=== PATIENT | male | born 1960 | race African-American/Black ===

== ENCOUNTER 2020-05-08 14:14 | Inpatient (IN) | payer MEDICAID, OTHER ==
[~2020-05-08] VITALS: Ht 188 cm; Wt 79.0 kg
[2020-05-08 14:28] VITALS: BP 77/94
[2020-05-08] MEDS ORDERED: MIDAZOLAM HCL 5 MG/ML-1ML VIAL IV ONE (14:30)
[2020-05-08] MEDS: MIDAZOLAM DRIP 50 mg/50mL 50 ML IV SCH (14:34)
[2020-05-08] MEDS ORDERED: NOREPINEPHRINE 8 MG/250ML KIT 250 ML IV ONE (15:01)
[2020-05-08] MEDS: NOREPINEPHRINE 8 MG/250ML KIT 250 ML IV SCH (15:05)
[2020-05-08 15:10] LABS: Hemoglobin 12.7 g/dL (13.5-17.5); White Blood Cell 6.3 10^3/uL (4.4-10.8)
[2020-05-08 15:12] LABS: Hematocrit 37.4 % (41.0-53.0); Mean Corpuscular Hemoglobin 35.3 pg (28.0-32.0); Platelet Count (auto) 137 10^3/uL (140-450); Red Cell Distribution Width 13.1 % (11.8-14.3)
[2020-05-08 15:21] LABS: Basophils % (manual) 0 (0.0-2.0); Blast Cells 0; Metamyelocytes % 0; Myelocytes % 0; Promyelocytes % 0; Reactive Lymphocytes 0
[2020-05-08 15:23] LABS: INR 0.97 (0.9-1.15); Partial Thromboplastin Time 20.6 sec (23.0-31.2)
[2020-05-08 15:26] LABS: Albumin 3.2 g/dL (3.4-5.0); Calcium 7.4 mg/dL (8.5-10.1)
[2020-05-08 15:28] LABS: Urine Bacteria FEW /hpf (None Seen); Urine Blood 2+ /uL (Negative); Urine Hyaline Cast FEW /lpf (0 - 2); Urine Specific Gravity 1.011 (1.001-1.035); Urine WBC 3 /hpf (0 - 3)
[2020-05-08 15:32] LABS: BUN/Creatinine Ratio 13.4; Bilirubin, Total 0.4 mg/dL (0.2-1.0); Total Protein 6.8 g/dL (6.4-8.2)
[2020-05-08 15:40] LABS: Lactic Acid w/Reflex 5.9 mmol/L (0.4-2.0)
[2020-05-08 15:41] LABS: Potassium 2.9 mmol/L (3.5-5.1)
[2020-05-08 15:43] LABS: Amphetamine Screen, Urine NEGATIVE (NEGATIVE); Barbiturate Scree,Urine NEGATIVE (NEGATIVE); Benzodiazephine Screen, Urine NEGATIVE (NEGATIVE); Cannabinoid Screen, Urine POSITIVE (NEGATIVE); Cocaine Screen, Urine NEGATIVE (NEGATIVE); Phencyclidine Screen, Urine NEGATIVE (NEGATIVE)
[2020-05-08 15:50] LABS: Opiate Scree,Urine NEGATIVE (NEGATIVE)
[2020-05-08 15:53] VITALS: BP 77/94
[2020-05-08] MEDS ORDERED: SODIUM CHLORIDE 0.9% 3,000 ML IV ONE (16:00)
[2020-05-08 16:15] VITALS: BP 110/78
[2020-05-08 16:25] LABS: Band Neutrophils % (manual) 1; Eosinophils % (manual) 1 (0-7); Lymphocytes % (manual) 60 (10.0-50.0); Monocytes % (manual) 12 (0-12)
[2020-05-08] MEDS ORDERED: VANCOMYCIN 1GM/250ML 250 ML IV ONE (18:00)
[2020-05-08 18:13] VITALS: BP 119/80
[2020-05-08 18:13] LABS: Salicylate 1.7 mg/dL (2.8-20.0)
[2020-05-08 18:15] LABS: Acetaminophen < 2.0 ug/mL (10-30)
[2020-05-08] MEDS ORDERED: dilTIAZem 25 MG/5 ML VIAL IV ONE (18:30)
[2020-05-08] MEDS: SODIUM CHLORIDE 0.9% 1,000 ML IV SCH (18:40)
[2020-05-08 20:38] VITALS: BP 87/69
[2020-05-08 22:10] VITALS: BP 131/84
[2020-05-08] MEDS ORDERED: MORPHINE SULF INJ 2 MG/ML SYRINGE 1ML IV PRN (22:45)
[2020-05-08] MEDS ORDERED: ONDANSETRON HCL 4 MG/2 ML VIAL IV PRN (22:45)
[2020-05-08] MEDS ORDERED: ACETAMINOPHEN 650 MG RECT SUPP PR PRN (22:45)
[2020-05-08] MEDS ORDERED: DEXTROSE (50%) 50ML SYRG IV PRN (22:45)
[2020-05-08] MEDS ORDERED: VANCOMYCIN PER PHARMACY 0 MG IV SCH (22:45)
[2020-05-08] MEDS ORDERED: NITROGLYCERIN 0.4 MG SL TAB SL PRN (22:45)
[2020-05-08] MEDS ORDERED: PROPOFOL 100 ML IV ONE (23:02)
[2020-05-09] VITALS (104 sets, daily range): BP systolic 94–159; BP diastolic 62–110
[2020-05-09] MEDS: SODIUM CHLORIDE 0.9% 1,000 ML IV SCH ×3 (01:10→07:52)
[2020-05-09] MEDS: PROPOFOL 100 ML IV SCH ×3 (01:49→21:17)
[2020-05-09] MEDS: MIDAZOLAM DRIP 50 mg/50mL 50 ML IV SCH ×3 (01:50→21:19)
[2020-05-09 03:58] LABS: Basophils # (auto) 0 10 ^3/uL (0-0.2); Eosinophils # (auto) 0 10 ^3/uL (0-0.8); Hemoglobin 12.1 g/dL (13.5-17.5); Monocytes # (auto) 0.5 10 ^3/uL (0-1.3)
[2020-05-09 04:04] LABS: Basophils % (auto) 0.4 % (0.0-2.0); Eosinophils % (auto) 0.7 % (0.0-7.0); Hematocrit 35.3 % (41.0-53.0); Lymphocytes # (auto) 1.7 10 ^3/uL (0.4-5.4); Lymphocytes % (auto) 29.7 % (10.0-50.0); Mean Corpuscular Hemoglobin 35.1 pg (28.0-32.0); Mean Corpuscular Hgb Conc. 34.3 g/dL (32.0-36.0); Mean Corpuscular Volume 102.5 fL (80.0-100.0); Monocytes % (auto) 9.2 % (0.0-12.0); Neutrophils # (auto) 3.5 10 ^3/uL (1.6-8.6); Nucleated Red Blood Cells % 0.3 %; Platelet Count (auto) 132 10^3/uL (140-450); Red Blood Cells 3.45 10^6/uL (4.5-5.90); Red Cell Distribution Width 13.5 % (11.8-14.3); White Blood Cell 5.8 10^3/uL (4.4-10.8)
[2020-05-09 04:27] LABS: Albumin 2.9 g/dL (3.4-5.0); BUN/Creatinine Ratio 11.5; Potassium 3.8 mmol/L (3.5-5.1)
[2020-05-09 04:30] LABS: Bilirubin, Total 0.4 mg/dL (0.2-1.0); Total Protein 5.8 g/dL (6.4-8.2)
[2020-05-09] MEDS ORDERED: InsuLIN REG 1unit/0.01ml Soln (100units/ml) SC SCH (07:00)
[2020-05-09] MEDS ORDERED: ACCU-CHEK COMFORT CURVE STRIP VI SCH (07:00)
[2020-05-09] MEDS: VANCOMYCIN 1GM/250ML 250 ML IV SCH ×2 (09:52→20:20)
[2020-05-09] MEDS: PANTOPRAZOLE 40 MG/10 ML VIAL INJ IV SCH (09:52)
[2020-05-09] MEDS ORDERED: ENOXAPARIN SOD 80 MG/0.8ML SYRINGE SC SCH (10:00)
[2020-05-09] MEDS ORDERED: SODIUM CHLORIDE 0.9% 1,000 ML IV SCH (10:15)
[2020-05-09] MEDS: ALBUTEROL SULF 2.5 MG/0.5ML(0.5%) NEB SOLN NEB SCH ×2 (11:41→18:15)
[2020-05-09] MEDS: IPRATROPIUM BROM 0.5 MG/2.5ML INH SOL NEB SCH ×2 (11:41→18:14)
[2020-05-09] MEDS: fentaNYL Drip 2500mCg/250mlNS 250 ML IV SCH (12:00)
[2020-05-09] MEDS: levoFLOXacin 500MG 100 ML IV SCH (12:00)
[2020-05-09] MEDS: NOREPINEPHRINE 8 MG/250ML KIT 250 ML IV SCH (13:30)
[2020-05-09] MEDS: FOLIC ACID 1 MG, MULTIPLE VITAMIN 10 ML, MAGNESIUM SULF SDV 50% 8 MEQ, THIAMINE INJ 100... INJ SCH ×5 (14:00)
[2020-05-09] MEDS ORDERED: chlordiazePOXIDE HCL 25 MG CAP PO ONE (14:00)
[2020-05-09] MEDS: Jevity 1.2 Cal/Fiber 1 Liter GT SCH (14:43)
[2020-05-09] MEDS: chlordiazePOXIDE HCL 25 MG CAP PO SCH (17:20)
[2020-05-10] VITALS (103 sets, daily range): BP systolic 10–125; BP diastolic 53–84
[2020-05-10] MEDS: IPRATROPIUM BROM 0.5 MG/2.5ML INH SOL NEB SCH ×4 (00:16→18:23)
[2020-05-10] MEDS: ALBUTEROL SULF 2.5 MG/0.5ML(0.5%) NEB SOLN NEB SCH ×4 (00:16→18:23)
[2020-05-10] MEDS: PROPOFOL 100 ML IV SCH ×4 (00:51→21:41)
[2020-05-10] MEDS: fentaNYL Drip 2500mCg/250mlNS 250 ML IV SCH (00:52)
[2020-05-10 03:49] LABS: Basophils # (auto) 0.1 10 ^3/uL (0-0.2); Basophils % (auto) 0.5 % (0.0-2.0); Eosinophils # (auto) 0.1 10 ^3/uL (0-0.8); Eosinophils % (auto) 0.7 % (0.0-7.0); Hematocrit 38.2 % (41.0-53.0); Hemoglobin 12.9 g/dL (13.5-17.5); Lymphocytes # (auto) 1.1 10 ^3/uL (0.4-5.4); Mean Corpuscular Hemoglobin 34.8 pg (28.0-32.0); Mean Corpuscular Hgb Conc. 33.8 g/dL (32.0-36.0); Mean Corpuscular Volume 103.1 fL (80.0-100.0); Monocytes # (auto) 0.6 10 ^3/uL (0-1.3); Neutrophils # (auto) 10.3 10 ^3/uL (1.6-8.6); Neutrophils % (auto) 84.8 % (37.0-80.0); Platelet Count (auto) 137 10^3/uL (140-450); Red Cell Distribution Width 13.5 % (11.8-14.3); White Blood Cell 12.2 10^3/uL (4.4-10.8)
[2020-05-10] MEDS: MIDAZOLAM DRIP 50 mg/50mL 50 ML IV SCH (03:58)
[2020-05-10 04:09] LABS: Potassium 3.7 mmol/L (3.5-5.1)
[2020-05-10 04:16] LABS: Albumin 2.7 g/dL (3.4-5.0); BUN/Creatinine Ratio 6.9; Bilirubin, Total 0.3 mg/dL (0.2-1.0); Calcium 7.5 mg/dL (8.5-10.1); Total Protein 6.3 g/dL (6.4-8.2)
[2020-05-10] MEDS: VANCOMYCIN 1GM/250ML 250 ML IV SCH ×2 (05:30→16:50)
[2020-05-10] MEDS: chlordiazePOXIDE HCL 25 MG CAP PO SCH ×4 (06:00→18:16)
[2020-05-10] MEDS: PANTOPRAZOLE 40 MG/10 ML VIAL INJ IV SCH (09:42)
[2020-05-10] MEDS: levoFLOXacin 500MG 100 ML IV SCH (09:43)
[2020-05-10] MEDS ORDERED: ENOXAPARIN SOD 40 MG/0.4 ML SYRINGE SC SCH (10:00)
[2020-05-10] MEDS ORDERED: POTASSIUM EFFERVESENT TAB 25 MEQ GT ONE (11:30)
[2020-05-10] MEDS: FOLIC ACID 1 MG, MULTIPLE VITAMIN 10 ML, MAGNESIUM SULF SDV 50% 8 MEQ, THIAMINE INJ 100... INJ SCH ×5 (12:06)
[2020-05-10] MEDS: NOREPINEPHRINE 8 MG/250ML KIT 250 ML IV SCH (15:00)
[2020-05-10] MEDS ORDERED: IOHEXOL 350 MG/ML 100ML IJ ONE (15:33)
[2020-05-10] MEDS: ENOXAPARIN SOD 100 MG/1 ML SYRINGE SC SCH (21:39)
[2020-05-11] VITALS (107 sets, daily range): BP systolic 89–164; BP diastolic 47–96
[2020-05-11] MEDS: ALBUTEROL SULF 2.5 MG/0.5ML(0.5%) NEB SOLN NEB SCH ×2 (00:11→06:15)
[2020-05-11] MEDS: IPRATROPIUM BROM 0.5 MG/2.5ML INH SOL NEB SCH ×5 (00:11→22:02)
[2020-05-11] MEDS: PROPOFOL 100 ML IV SCH ×4 (02:06→16:17)
[2020-05-11] MEDS: VANCOMYCIN 1GM/250ML 250 ML IV SCH ×3 (02:06→21:01)
[2020-05-11] MEDS: fentaNYL Drip 2500mCg/250mlNS 250 ML IV SCH (02:53)
[2020-05-11 04:07] LABS: Eosinophils # (auto) 0.2 10 ^3/uL (0-0.8); Hemoglobin 12.1 g/dL (13.5-17.5); Mean Corpuscular Volume 102.3 fL (80.0-100.0); Nucleated Red Blood Cells % 0.1 %
[2020-05-11 04:10] LABS: Basophils # (auto) 0 10 ^3/uL (0-0.2); Basophils % (auto) 0.2 % (0.0-2.0); Eosinophils % (auto) 1.6 % (0.0-7.0); Hematocrit 36.2 % (41.0-53.0); Lymphocytes # (auto) 1.3 10 ^3/uL (0.4-5.4); Lymphocytes % (auto) 10.3 % (10.0-50.0); Mean Corpuscular Hemoglobin 34.2 pg (28.0-32.0); Mean Corpuscular Hgb Conc. 33.4 g/dL (32.0-36.0); Monocytes # (auto) 0.8 10 ^3/uL (0-1.3); Monocytes % (auto) 6.4 % (0.0-12.0); Neutrophils % (auto) 81.5 % (37.0-80.0); Platelet Count (auto) 136 10^3/uL (140-450); Red Blood Cells 3.54 10^6/uL (4.5-5.90); Red Cell Distribution Width 13.5 % (11.8-14.3); White Blood Cell 12.3 10^3/uL (4.4-10.8)
[2020-05-11 04:25] LABS: Albumin 2.3 g/dL (3.4-5.0); Calcium 7.5 mg/dL (8.5-10.1); Potassium 3.9 mmol/L (3.5-5.1)
[2020-05-11 04:29] LABS: BUN/Creatinine Ratio 7.1; Bilirubin, Total 0.2 mg/dL (0.2-1.0); Total Protein 6.1 g/dL (6.4-8.2)
[2020-05-11] MEDS: chlordiazePOXIDE HCL 25 MG CAP PO SCH ×4 (06:00→23:16)
[2020-05-11] MEDS ORDERED: LABETALOL HCL 5 MG/ML 4ML SYRINGE IV PRN (09:45)
[2020-05-11] MEDS ORDERED: LABETALOL HCL 5 MG/ML 4ML SYRINGE IV ONE (09:45)
[2020-05-11] MEDS: ENOXAPARIN SOD 100 MG/1 ML SYRINGE SC SCH ×2 (09:47→21:02)
[2020-05-11] MEDS: PANTOPRAZOLE 40 MG/10 ML VIAL INJ IV SCH (09:47)
[2020-05-11] MEDS: levoFLOXacin 500MG 100 ML IV SCH (09:47)
[2020-05-11] MEDS ORDERED: chlordiazePOXIDE HCL 25 MG CAP PO PRN (11:00)
[2020-05-11] MEDS: FOLIC ACID 1 MG, MULTIPLE VITAMIN 10 ML, MAGNESIUM SULF SDV 50% 8 MEQ, THIAMINE INJ 100... INJ SCH ×5 (12:47)
[2020-05-11] MEDS ORDERED: SODIUM CHLORIDE LOCK 30 ML ONE (13:12)
[2020-05-11] MEDS ORDERED: LIDOCAINE 2%HCL (LOCAL ANESTH.) INJ 20ML MDV ONE (13:12)
[2020-05-11] MEDS ORDERED: EPINEPHrine HCL 1 MG/1 ML AMP ONE (13:13)
[2020-05-11] MEDS ORDERED: LIDOCAINE HCL 2% TOP JELLY 5ML TOP ONE (13:13)
[2020-05-11] MEDS ORDERED: MIDAZOLAM HCL 5 MG/ML-1ML VIAL ONE (13:13)
[2020-05-11] MEDS ORDERED: fentaNYL CITRATE 100 MCG/2 ML VL ONE (13:13)
[2020-05-11] MEDS: MIDAZOLAM DRIP 50 mg/50mL 50 ML IV SCH (13:30)
[2020-05-11] MEDS: ACETYLCYSTEINE 10 %(100MG/ML) SOL 4ML NEB SCH ×3 (14:00→22:03)
[2020-05-11] MEDS: LEVALBUTEROL HCL 1.25 MG/3 ML NEB NEB SCH ×3 (14:47→22:03)
[2020-05-11] MEDS: NOREPINEPHRINE 8 MG/250ML KIT 250 ML IV SCH (15:00)
[2020-05-12] VITALS (58 sets, daily range): BP systolic 84–137; BP diastolic 45–86
[2020-05-12] MEDS: IPRATROPIUM BROM 0.5 MG/2.5ML INH SOL NEB SCH ×6 (02:16→22:16)
[2020-05-12] MEDS: ACETYLCYSTEINE 10 %(100MG/ML) SOL 4ML NEB SCH ×6 (02:16→22:16)
[2020-05-12] MEDS: LEVALBUTEROL HCL 1.25 MG/3 ML NEB NEB SCH ×6 (02:16→22:16)
[2020-05-12 04:19] LABS: Basophils # (auto) 0.1 10 ^3/uL (0-0.2); Basophils % (auto) 1.3 % (0.0-2.0); Eosinophils # (auto) 0.1 10 ^3/uL (0-0.8); Eosinophils % (auto) 1.6 % (0.0-7.0); Hematocrit 32.8 % (41.0-53.0); Hemoglobin 11.2 g/dL (13.5-17.5); Lymphocytes # (auto) 1.6 10 ^3/uL (0.4-5.4); Lymphocytes % (auto) 18.9 % (10.0-50.0); Mean Corpuscular Hgb Conc. 34.2 g/dL (32.0-36.0); Mean Corpuscular Volume 102.1 fL (80.0-100.0); Monocytes # (auto) 0.8 10 ^3/uL (0-1.3); Monocytes % (auto) 8.9 % (0.0-12.0); Neutrophils # (auto) 5.9 10 ^3/uL (1.6-8.6); Neutrophils % (auto) 69.3 % (37.0-80.0); Nucleated Red Blood Cells % 0.1 %; Platelet Count (auto) 134 10^3/uL (140-450); Red Blood Cells 3.22 10^6/uL (4.5-5.90); Red Cell Distribution Width 13.3 % (11.8-14.3); White Blood Cell 8.6 10^3/uL (4.4-10.8)
[2020-05-12 04:39] LABS: BUN/Creatinine Ratio 5.7; Calcium 7.9 mg/dL (8.5-10.1)
[2020-05-12] MEDS ORDERED: POTASSIUM CHLORIDE 20 MEQ in D5W 5% 1,000 ML IV SCH (05:15)
[2020-05-12] MEDS ORDERED: POTASSIUM CHL 20MEQ/100ML 100 ML IV ONE (05:30)
[2020-05-12] MEDS: chlordiazePOXIDE HCL 25 MG CAP PO SCH ×3 (05:49→17:18)
[2020-05-12] MEDS: VANCOMYCIN 1GM/250ML 250 ML IV SCH (07:54)
[2020-05-12] MEDS: fentaNYL Drip 2500mCg/250mlNS 250 ML IV SCH ×2 (08:49→20:51)
[2020-05-12] MEDS: PROPOFOL 100 ML IV SCH ×3 (08:58→18:13)
[2020-05-12] MEDS: PANTOPRAZOLE 40 MG/10 ML VIAL INJ IV SCH (09:23)
[2020-05-12] MEDS: levoFLOXacin 500MG 100 ML IV SCH (09:23)
[2020-05-12] MEDS: ENOXAPARIN SOD 100 MG/1 ML SYRINGE SC SCH ×2 (09:23→22:00)
[2020-05-12] MEDS: MIDAZOLAM DRIP 50 mg/50mL 50 ML IV SCH ×2 (10:28→19:30)
[2020-05-12] MEDS: FOLIC ACID 1 MG, MULTIPLE VITAMIN 10 ML, MAGNESIUM SULF SDV 50% 8 MEQ, THIAMINE INJ 100... INJ SCH ×5 (11:00)
[2020-05-12] MEDS: METOCLOPRAMIDE HCL 5MG/ml INJ 2ml VIAL IV SCH ×2 (11:39→17:18)
[2020-05-12] MEDS: NOREPINEPHRINE 8 MG/250ML KIT 250 ML IV SCH (12:12)
[2020-05-12] MEDS ORDERED: THIAMINE 100mg/ml INJ (200mg/2ml VIAL) IV ONE (12:30)
[2020-05-12] MEDS: ACETAMINOPHEN 650 mg PER 20.3 mL UD GT PRN (17:04)
[2020-05-12] MEDS: cloNIDine HCL 0.1 MG TAB GT SCH (22:00)
[2020-05-13] VITALS (103 sets, daily range): BP systolic 86–151; BP diastolic 51–104
[2020-05-13] MEDS: METOCLOPRAMIDE HCL 5MG/ml INJ 2ml VIAL IV SCH ×5 (00:56→23:49)
[2020-05-13] MEDS: chlordiazePOXIDE HCL 25 MG CAP PO SCH ×6 (00:56→21:44)
[2020-05-13] MEDS: MIDAZOLAM DRIP 50 mg/50mL 50 ML IV SCH ×4 (02:00→21:43)
[2020-05-13] MEDS: IPRATROPIUM BROM 0.5 MG/2.5ML INH SOL NEB SCH ×6 (02:25→22:05)
[2020-05-13] MEDS: LEVALBUTEROL HCL 1.25 MG/3 ML NEB NEB SCH ×6 (02:26→22:05)
[2020-05-13] MEDS: ACETYLCYSTEINE 10 %(100MG/ML) SOL 4ML NEB SCH ×6 (02:26→22:05)
[2020-05-13] MEDS: PROPOFOL 100 ML IV SCH ×5 (04:30→21:37)
[2020-05-13 04:39] LABS: Basophils # (auto) 0.1 10 ^3/uL (0-0.2); Basophils % (auto) 0.6 % (0.0-2.0); Eosinophils # (auto) 0.2 10 ^3/uL (0-0.8); Eosinophils % (auto) 2.5 % (0.0-7.0); Hematocrit 32.5 % (41.0-53.0); Hemoglobin 11.4 g/dL (13.5-17.5); Lymphocytes # (auto) 1.6 10 ^3/uL (0.4-5.4); Lymphocytes % (auto) 19.2 % (10.0-50.0); Mean Corpuscular Hemoglobin 35.3 pg (28.0-32.0); Mean Corpuscular Volume 100.8 fL (80.0-100.0); Monocytes # (auto) 0.8 10 ^3/uL (0-1.3); Monocytes % (auto) 9.2 % (0.0-12.0); Neutrophils # (auto) 5.7 10 ^3/uL (1.6-8.6); Neutrophils % (auto) 68.5 % (37.0-80.0); Nucleated Red Blood Cells % 0.1 %; Platelet Count (auto) 154 10^3/uL (140-450); Red Blood Cells 3.22 10^6/uL (4.5-5.90); Red Cell Distribution Width 13.6 % (11.8-14.3); White Blood Cell 8.3 10^3/uL (4.4-10.8)
[2020-05-13 04:58] LABS: Calcium 8.2 mg/dL (8.5-10.1)
[2020-05-13 05:00] LABS: BUN/Creatinine Ratio 5.3
[2020-05-13 05:10] LABS: Potassium 2.8 mmol/L (3.5-5.1)
[2020-05-13] MEDS ORDERED: POTASSIUM CHL 20MEQ/100ML 100 ML IV ONE (05:59)
[2020-05-13] MEDS: NOREPINEPHRINE 8 MG/250ML KIT 250 ML IV SCH (06:45)
[2020-05-13] MEDS: POTASSIUM CHL 20MEQ/100ML 100 ML IV SCH ×2 (06:47→07:31)
[2020-05-13] MEDS: ACETAMINOPHEN 650 mg PER 20.3 mL UD GT PRN ×2 (08:04→17:35)
[2020-05-13] MEDS: FOLIC ACID 1 MG in D5W 5% 50 ML INJ SCH (09:25)
[2020-05-13] MEDS: PANTOPRAZOLE 40 MG/10 ML VIAL INJ IV SCH (09:26)
[2020-05-13] MEDS: ENOXAPARIN SOD 100 MG/1 ML SYRINGE SC SCH ×2 (09:26→21:43)
[2020-05-13] MEDS: THIAMINE 100mg/ml INJ (200mg/2ml VIAL) IV SCH (09:27)
[2020-05-13] MEDS: cloNIDine HCL 0.1 MG TAB GT SCH (09:33)
[2020-05-13] MEDS: levoFLOXacin 750MG 150 ML IV SCH (09:40)
[2020-05-13] MEDS ORDERED: ALBUMIN 5% 250 ML IV ONE (10:00)
[2020-05-13] MEDS: fentaNYL Drip 2500mCg/250mlNS 250 ML IV SCH (10:10)
[2020-05-14] VITALS (104 sets, daily range): BP systolic 93–144; BP diastolic 54–96
[2020-05-14] MEDS: IPRATROPIUM BROM 0.5 MG/2.5ML INH SOL NEB SCH ×6 (02:13→21:57)
[2020-05-14] MEDS: LEVALBUTEROL HCL 1.25 MG/3 ML NEB NEB SCH ×6 (02:13→21:57)
[2020-05-14] MEDS: ACETYLCYSTEINE 10 %(100MG/ML) SOL 4ML NEB SCH ×6 (02:14→21:57)
[2020-05-14] MEDS: chlordiazePOXIDE HCL 25 MG CAP PO SCH ×6 (02:18→21:32)
[2020-05-14 05:31] LABS: Eosinophils # (auto) 0.2 10 ^3/uL (0-0.8); Monocytes # (auto) 0.8 10 ^3/uL (0-1.3); Monocytes % (auto) 10.8 % (0.0-12.0); Nucleated Red Blood Cells % 0.1 %
[2020-05-14 05:33] LABS: Basophils # (auto) 0.1 10 ^3/uL (0-0.2); Basophils % (auto) 0.9 % (0.0-2.0); Eosinophils % (auto) 3.2 % (0.0-7.0); Hematocrit 30.1 % (41.0-53.0); Hemoglobin 10.5 g/dL (13.5-17.5); Lymphocytes # (auto) 1.1 10 ^3/uL (0.4-5.4); Lymphocytes % (auto) 14.4 % (10.0-50.0); Mean Corpuscular Hemoglobin 35.6 pg (28.0-32.0); Mean Corpuscular Hgb Conc. 34.9 g/dL (32.0-36.0); Mean Corpuscular Volume 101.8 fL (80.0-100.0); Neutrophils # (auto) 5.6 10 ^3/uL (1.6-8.6); Neutrophils % (auto) 70.7 % (37.0-80.0); Platelet Count (auto) 151 10^3/uL (140-450); Red Blood Cells 2.95 10^6/uL (4.5-5.90); Red Cell Distribution Width 13.9 % (11.8-14.3); White Blood Cell 7.9 10^3/uL (4.4-10.8)
[2020-05-14 05:47] LABS: Potassium 3.5 mmol/L (3.5-5.1)
[2020-05-14 05:55] LABS: BUN/Creatinine Ratio 7.4; Calcium 8.2 mg/dL (8.5-10.1)
[2020-05-14] MEDS: METOCLOPRAMIDE HCL 5MG/ml INJ 2ml VIAL IV SCH ×2 (06:00→17:48)
[2020-05-14] MEDS: MIDAZOLAM DRIP 50 mg/50mL 50 ML IV SCH ×3 (06:13→23:07)
[2020-05-14] MEDS: PROPOFOL 100 ML IV SCH ×4 (08:40→23:07)
[2020-05-14] MEDS: levoFLOXacin 750MG 150 ML IV SCH (09:16)
[2020-05-14] MEDS: THIAMINE 100mg/ml INJ (200mg/2ml VIAL) IV SCH (09:16)
[2020-05-14] MEDS: ENOXAPARIN SOD 100 MG/1 ML SYRINGE SC SCH ×2 (09:16→21:32)
[2020-05-14] MEDS: PANTOPRAZOLE 40 MG/10 ML VIAL INJ IV SCH (09:17)
[2020-05-14] MEDS: FOLIC ACID 1 MG in D5W 5% 50 ML INJ SCH (12:20)
[2020-05-14] MEDS: LACTULOSE 20Gm/30ML SOLN GT SCH ×2 (13:34→21:32)
[2020-05-14] MEDS: fentaNYL Drip 2500mCg/250mlNS 250 ML IV SCH (14:01)
[2020-05-14] MEDS: ACETAMINOPHEN 650 mg PER 20.3 mL UD GT PRN ×2 (14:54→23:01)
[2020-05-14] MEDS: NOREPINEPHRINE 8 MG/250ML KIT 250 ML IV SCH (15:00)
[2020-05-14] MEDS: PHENobarbital SODIUM 130 MG/ML VL IV SCH ×2 (17:51→21:35)
[2020-05-15] VITALS (102 sets, daily range): BP systolic 98–140; BP diastolic 61–97
[2020-05-15] MEDS: ACETYLCYSTEINE 10 %(100MG/ML) SOL 4ML NEB SCH ×6 (02:06→22:16)
[2020-05-15] MEDS: IPRATROPIUM BROM 0.5 MG/2.5ML INH SOL NEB SCH ×6 (02:06→22:16)
[2020-05-15] MEDS: LEVALBUTEROL HCL 1.25 MG/3 ML NEB NEB SCH ×6 (02:06→22:16)
[2020-05-15] MEDS: chlordiazePOXIDE HCL 25 MG CAP PO SCH ×6 (03:35→21:59)
[2020-05-15] MEDS: ACETAMINOPHEN 650 mg PER 20.3 mL UD GT PRN ×2 (03:36→17:37)
[2020-05-15 04:30] LABS: Hemoglobin 11.6 g/dL (13.5-17.5); Mean Corpuscular Volume 102.6 fL (80.0-100.0); Monocytes # (auto) 0.8 10 ^3/uL (0-1.3); Neutrophils # (auto) 5.6 10 ^3/uL (1.6-8.6)
[2020-05-15 04:33] LABS: Basophils # (auto) 0.1 10 ^3/uL (0-0.2); Basophils % (auto) 0.7 % (0.0-2.0); Eosinophils # (auto) 0.1 10 ^3/uL (0-0.8); Eosinophils % (auto) 1.8 % (0.0-7.0); Lymphocytes # (auto) 1.3 10 ^3/uL (0.4-5.4); Lymphocytes % (auto) 16.2 % (10.0-50.0); Mean Corpuscular Hemoglobin 34.9 pg (28.0-32.0); Monocytes % (auto) 10.5 % (0.0-12.0); Neutrophils % (auto) 70.8 % (37.0-80.0); Nucleated Red Blood Cells % 0.1 %; Platelet Count (auto) 176 10^3/uL (140-450); Red Blood Cells 3.31 10^6/uL (4.5-5.90); Red Cell Distribution Width 13.9 % (11.8-14.3)
[2020-05-15 04:54] LABS: Calcium 8.3 mg/dL (8.5-10.1); Potassium 4.3 mmol/L (3.5-5.1)
[2020-05-15 04:56] LABS: BUN/Creatinine Ratio 9.2
[2020-05-15] MEDS: PHENobarbital SODIUM 130 MG/ML VL IV SCH ×3 (05:45→21:59)
[2020-05-15] MEDS: METOCLOPRAMIDE HCL 5MG/ml INJ 2ml VIAL IV SCH ×2 (05:45→17:37)
[2020-05-15] MEDS: fentaNYL Drip 2500mCg/250mlNS 250 ML IV SCH (05:49)
[2020-05-15] MEDS: PROPOFOL 100 ML IV SCH ×3 (08:22→19:00)
[2020-05-15] MEDS ORDERED: LACTULOSE 20Gm/30ML SOLN GT PRN (10:00)
[2020-05-15] MEDS: PANTOPRAZOLE 40 MG/10 ML VIAL INJ IV SCH (10:10)
[2020-05-15] MEDS: levoFLOXacin 750MG 150 ML IV SCH (10:10)
[2020-05-15] MEDS: THIAMINE 100mg/ml INJ (200mg/2ml VIAL) IV SCH (10:10)
[2020-05-15] MEDS: APIXABAN 5 MG TAB PO SCH ×2 (10:23→21:59)
[2020-05-15] MEDS: FOLIC ACID 1 MG in D5W 5% 50 ML INJ SCH (12:33)
[2020-05-15] MEDS: GABAPENTIN 300 MG CAP PO SCH ×2 (12:48→21:59)
[2020-05-15] MEDS: MIDAZOLAM DRIP 50 mg/50mL 50 ML IV SCH (13:30)
[2020-05-15] MEDS: NOREPINEPHRINE 8 MG/250ML KIT 250 ML IV SCH (15:00)
[2020-05-15] MEDS: Jevity 1.2 Cal/Fiber 1 Liter GT SCH (19:01)
[2020-05-16] VITALS (97 sets, daily range): BP systolic 95–153; BP diastolic 58–96
[2020-05-16] MEDS: LEVALBUTEROL HCL 1.25 MG/3 ML NEB NEB SCH ×6 (02:24→22:24)
[2020-05-16] MEDS: ACETYLCYSTEINE 10 %(100MG/ML) SOL 4ML NEB SCH ×6 (02:24→22:23)
[2020-05-16] MEDS: IPRATROPIUM BROM 0.5 MG/2.5ML INH SOL NEB SCH ×6 (02:24→22:24)
[2020-05-16] MEDS: chlordiazePOXIDE HCL 25 MG CAP PO SCH ×4 (03:03→20:06)
[2020-05-16] MEDS: PROPOFOL 100 ML IV SCH (04:33)
[2020-05-16 06:06] LABS: Basophils # (auto) 0 10 ^3/uL (0-0.2); Eosinophils # (auto) 0.1 10 ^3/uL (0-0.8); Monocytes # (auto) 0.8 10 ^3/uL (0-1.3); Neutrophils # (auto) 7.4 10 ^3/uL (1.6-8.6)
[2020-05-16 06:08] LABS: Basophils % (auto) 0.3 % (0.0-2.0); Eosinophils % (auto) 1.1 % (0.0-7.0); Hematocrit 30.9 % (41.0-53.0); Hemoglobin 10.7 g/dL (13.5-17.5); Lymphocytes % (auto) 10.9 % (10.0-50.0); Mean Corpuscular Hemoglobin 34.8 pg (28.0-32.0); Mean Corpuscular Hgb Conc. 34.5 g/dL (32.0-36.0); Mean Corpuscular Volume 100.9 fL (80.0-100.0); Monocytes % (auto) 8.3 % (0.0-12.0); Neutrophils % (auto) 79.4 % (37.0-80.0); Platelet Count (auto) 188 10^3/uL (140-450); Red Blood Cells 3.06 10^6/uL (4.5-5.90); Red Cell Distribution Width 13.7 % (11.8-14.3); White Blood Cell 9.3 10^3/uL (4.4-10.8)
[2020-05-16 06:12] LABS: Potassium 3.3 mmol/L (3.5-5.1)
[2020-05-16 06:17] LABS: Calcium 8.8 mg/dL (8.5-10.1)
[2020-05-16] MEDS: METOCLOPRAMIDE HCL 5MG/ml INJ 2ml VIAL IV SCH ×2 (08:06→18:04)
[2020-05-16] MEDS: GABAPENTIN 300 MG CAP PO SCH ×3 (08:07→23:01)
[2020-05-16] MEDS: PHENobarbital SODIUM 130 MG/ML VL IV SCH ×3 (08:07→23:00)
[2020-05-16] MEDS: PANTOPRAZOLE 40 MG/10 ML VIAL INJ IV SCH (09:54)
[2020-05-16] MEDS: THIAMINE 100mg/ml INJ (200mg/2ml VIAL) IV SCH (09:54)
[2020-05-16] MEDS: levoFLOXacin 750MG 150 ML IV SCH (09:54)
[2020-05-16] MEDS: APIXABAN 5 MG TAB PO SCH ×2 (09:55→22:00)
[2020-05-16] MEDS: FOLIC ACID 1 MG in D5W 5% 50 ML INJ SCH ×2 (10:00→11:47)
[2020-05-16] MEDS ORDERED: FUROSEMIDE 20 MG/2 ML VIAL IV ONE (10:15)
[2020-05-16] MEDS ORDERED: ALBUMIN 25% 50 ML IV ONE (10:15)
[2020-05-16] MEDS ORDERED: POTASSIUM EFFERVESENT TAB 25 MEQ GT ONE (10:45)
[2020-05-16 11:11] LABS: Phosphorus 2.7 mg/dL (2.5-4.90)
[2020-05-16] MEDS: fentaNYL Drip 2500mCg/250mlNS 250 ML IV SCH (11:45)
[2020-05-16] MEDS: MIDAZOLAM DRIP 50 mg/50mL 50 ML IV SCH (14:30)
[2020-05-16] MEDS: NOREPINEPHRINE 8 MG/250ML KIT 250 ML IV SCH (15:00)
[2020-05-16] MEDS: cefTRIAXone 1GM/50ML D5W 50 ML IV SCH (15:37)
[2020-05-16] MEDS: ACETAMINOPHEN 650 mg PER 20.3 mL UD GT PRN (20:05)
[2020-05-17] VITALS (58 sets, daily range): BP systolic 104–150; BP diastolic 67–106
[2020-05-17] MEDS: chlordiazePOXIDE HCL 25 MG CAP PO SCH ×5 (00:40→23:52)
[2020-05-17] MEDS: IPRATROPIUM BROM 0.5 MG/2.5ML INH SOL NEB SCH ×6 (01:55→22:14)
[2020-05-17] MEDS: LEVALBUTEROL HCL 1.25 MG/3 ML NEB NEB SCH ×6 (01:55→22:14)
[2020-05-17] MEDS: ACETYLCYSTEINE 10 %(100MG/ML) SOL 4ML NEB SCH ×6 (02:19→22:14)
[2020-05-17 04:34] LABS: Basophils # (auto) 0 10 ^3/uL (0-0.2); Eosinophils # (auto) 0.1 10 ^3/uL (0-0.8); Lymphocytes # (auto) 1.1 10 ^3/uL (0.4-5.4); Neutrophils # (auto) 7.6 10 ^3/uL (1.6-8.6)
[2020-05-17 04:36] LABS: Basophils % (auto) 0.3 % (0.0-2.0); Eosinophils % (auto) 0.5 % (0.0-7.0); Hemoglobin 10.6 g/dL (13.5-17.5); Lymphocytes % (auto) 11.2 % (10.0-50.0); Mean Corpuscular Hemoglobin 34.6 pg (28.0-32.0); Mean Corpuscular Hgb Conc. 34.3 g/dL (32.0-36.0); Mean Corpuscular Volume 100.8 fL (80.0-100.0); Monocytes # (auto) 0.9 10 ^3/uL (0-1.3); Monocytes % (auto) 9.7 % (0.0-12.0); Neutrophils % (auto) 78.3 % (37.0-80.0); Nucleated Red Blood Cells % 0.1 %; Platelet Count (auto) 209 10^3/uL (140-450); Red Blood Cells 3.07 10^6/uL (4.5-5.90); Red Cell Distribution Width 13.9 % (11.8-14.3); White Blood Cell 9.7 10^3/uL (4.4-10.8)
[2020-05-17 04:52] LABS: Albumin 2.3 g/dL (3.4-5.0); Calcium 8.6 mg/dL (8.5-10.1); Potassium 3.8 mmol/L (3.5-5.1)
[2020-05-17 04:56] LABS: BUN/Creatinine Ratio 13.3; Bilirubin, Total 0.2 mg/dL (0.2-1.0)
[2020-05-17] MEDS: METOCLOPRAMIDE HCL 5MG/ml INJ 2ml VIAL IV SCH ×2 (05:41→17:51)
[2020-05-17] MEDS: PHENobarbital SODIUM 130 MG/ML VL IV SCH ×2 (05:41→13:55)
[2020-05-17] MEDS: GABAPENTIN 300 MG CAP PO SCH ×3 (05:41→21:17)
[2020-05-17] MEDS: cefTRIAXone 1GM/50ML D5W 50 ML IV SCH (08:16)
[2020-05-17] MEDS: fentaNYL Drip 2500mCg/250mlNS 250 ML IV SCH (10:15)
[2020-05-17] MEDS ORDERED: cloNIDine HCL 0.1 MG TAB PO ONE (12:15)
[2020-05-17] MEDS ORDERED: FUROSEMIDE 40 MG/4 ML VIAL IV ONE (12:15)
[2020-05-17] MEDS: THIAMINE 100mg/ml INJ (200mg/2ml VIAL) IV SCH (12:25)
[2020-05-17] MEDS: ACETAMINOPHEN 650 mg PER 20.3 mL UD GT PRN (12:25)
[2020-05-17] MEDS: PANTOPRAZOLE 40 MG/10 ML VIAL INJ IV SCH (12:26)
[2020-05-17] MEDS: APIXABAN 5 MG TAB PO SCH ×2 (12:26→21:17)
[2020-05-17] MEDS: FOLIC ACID 1 MG in D5W 5% 50 ML INJ SCH (12:26)
[2020-05-17] MEDS: MIDAZOLAM DRIP 50 mg/50mL 50 ML IV SCH (14:00)
[2020-05-17] MEDS: NOREPINEPHRINE 8 MG/250ML KIT 250 ML IV SCH (14:00)
[2020-05-17] MEDS: cloNIDine HCL 0.1 MG TAB PO SCH (21:16)
[2020-05-17] MEDS: PROPOFOL 100 ML IV SCH (23:00)
[2020-05-18] VITALS (58 sets, daily range): BP systolic 97–132; BP diastolic 57–95
[2020-05-18] MEDS: IPRATROPIUM BROM 0.5 MG/2.5ML INH SOL NEB SCH ×6 (02:16→22:30)
[2020-05-18] MEDS: LEVALBUTEROL HCL 1.25 MG/3 ML NEB NEB SCH ×6 (02:16→22:30)
[2020-05-18] MEDS: ACETYLCYSTEINE 10 %(100MG/ML) SOL 4ML NEB SCH ×6 (02:16→22:30)
[2020-05-18 04:19] LABS: Basophils # (auto) 0 10 ^3/uL (0-0.2); Basophils % (auto) 0.2 % (0.0-2.0); Eosinophils # (auto) 0 10 ^3/uL (0-0.8); Eosinophils % (auto) 0.1 % (0.0-7.0); Hematocrit 35.9 % (41.0-53.0); Hemoglobin 12.2 g/dL (13.5-17.5); Lymphocytes # (auto) 0.9 10 ^3/uL (0.4-5.4); Lymphocytes % (auto) 6.6 % (10.0-50.0); Mean Corpuscular Hemoglobin 34.1 pg (28.0-32.0); Mean Corpuscular Hgb Conc. 33.9 g/dL (32.0-36.0); Mean Corpuscular Volume 100.8 fL (80.0-100.0); Monocytes # (auto) 0.7 10 ^3/uL (0-1.3); Neutrophils # (auto) 12.2 10 ^3/uL (1.6-8.6); Neutrophils % (auto) 88.1 % (37.0-80.0); Nucleated Red Blood Cells % 0.2 %; Platelet Count (auto) 246 10^3/uL (140-450); Red Blood Cells 3.56 10^6/uL (4.5-5.90); Red Cell Distribution Width 13.8 % (11.8-14.3); White Blood Cell 13.9 10^3/uL (4.4-10.8)
[2020-05-18 04:37] LABS: BUN/Creatinine Ratio 17.2; Calcium 9.3 mg/dL (8.5-10.1); Potassium 4.1 mmol/L (3.5-5.1)
[2020-05-18] MEDS: chlordiazePOXIDE HCL 25 MG CAP PO SCH (05:48)
[2020-05-18] MEDS: METOCLOPRAMIDE HCL 5MG/ml INJ 2ml VIAL IV SCH (05:48)
[2020-05-18] MEDS: GABAPENTIN 300 MG CAP PO SCH ×3 (05:48→21:54)
[2020-05-18] MEDS: THIAMINE 100mg/ml INJ (200mg/2ml VIAL) IV SCH (09:39)
[2020-05-18] MEDS: cefTRIAXone 1GM/50ML D5W 50 ML IV SCH (09:39)
[2020-05-18] MEDS: PANTOPRAZOLE 40 MG/10 ML VIAL INJ IV SCH (09:39)
[2020-05-18] MEDS: cloNIDine HCL 0.1 MG TAB PO SCH (09:40)
[2020-05-18] MEDS: APIXABAN 5 MG TAB PO SCH (09:41)
[2020-05-18] MEDS: FOLIC ACID 1 MG in D5W 5% 50 ML INJ SCH (10:08)
[2020-05-18] MEDS: fentaNYL Drip 2500mCg/250mlNS 250 ML IV SCH (10:15)
[2020-05-18] MEDS: MIDAZOLAM DRIP 50 mg/50mL 50 ML IV SCH (14:30)
[2020-05-18] MEDS ORDERED: metroNIDAZOLE 500MG/100ML 100 ML IV ONE (15:00)
[2020-05-18] MEDS: NOREPINEPHRINE 8 MG/250ML KIT 250 ML IV SCH (15:00)
[2020-05-18] MEDS ORDERED: SODIUM CHLORIDE 0.9% 1,000 ML IV ONE (15:00)
[2020-05-18] MEDS ORDERED: AMIODARONE HCL 150 MG in D5W 5% 100 ML IV ONE (15:30)
[2020-05-18] MEDS: SODIUM CHLORIDE 0.9% 1,000 ML IV SCH ×2 (15:43→23:44)
[2020-05-18] MEDS ORDERED: ADENOSINE 6 MG/2 ML INJ IV ONE ×2 (15:45)
[2020-05-18] MEDS ORDERED: AMIODARONE 450mg/250ml AE 250 ML IV SCH (15:45)
[2020-05-18 15:53] LABS: Basophils # (auto) 0.1 10 ^3/uL (0-0.2); Basophils % (auto) 0.6 % (0.0-2.0); Eosinophils # (auto) 0 10 ^3/uL (0-0.8); Eosinophils % (auto) 0.1 % (0.0-7.0); Hematocrit 36.3 % (41.0-53.0); Hemoglobin 12.3 g/dL (13.5-17.5); Lymphocytes # (auto) 0.9 10 ^3/uL (0.4-5.4); Lymphocytes % (auto) 3.9 % (10.0-50.0); Mean Corpuscular Hgb Conc. 33.9 g/dL (32.0-36.0); Mean Corpuscular Volume 100.3 fL (80.0-100.0); Monocytes # (auto) 0.8 10 ^3/uL (0-1.3); Monocytes % (auto) 3.5 % (0.0-12.0); Neutrophils # (auto) 20.3 10 ^3/uL (1.6-8.6); Neutrophils % (auto) 91.9 % (37.0-80.0); Nucleated Red Blood Cells % 0.1 %; Platelet Count (auto) 262 10^3/uL (140-450); Red Blood Cells 3.62 10^6/uL (4.5-5.90); Red Cell Distribution Width 13.7 % (11.8-14.3); White Blood Cell 22.1 10^3/uL (4.4-10.8)
[2020-05-18 16:07] LABS: Albumin 2.3 g/dL (3.4-5.0); BUN/Creatinine Ratio 26.7; Calcium 8.5 mg/dL (8.5-10.1); Potassium 3.8 mmol/L (3.5-5.1)
[2020-05-18 16:10] LABS: Bilirubin, Total 0.3 mg/dL (0.2-1.0); Total Protein 7.6 g/dL (6.4-8.2)
[2020-05-18] MEDS ORDERED: METOPROLOL TARTRATE 25 MG TAB PO ONE (16:15)
[2020-05-18] MEDS: PIPERACILLIN-TAZOB 3.375GM 100 ML IV SCH ×2 (18:39→23:43)
[2020-05-18] MEDS: VANCOMYCIN HCL 500MG/5ML ORAL SOL GT SCH ×2 (18:53→21:56)
[2020-05-18] MEDS: metroNIDAZOLE 500MG/100ML 100 ML IV SCH (21:56)
[2020-05-18] MEDS: METOPROLOL TARTRATE 25 MG TAB PO SCH (22:00)
[2020-05-18] MEDS: PROPOFOL 100 ML IV SCH (23:00)
[2020-05-19] VITALS (105 sets, daily range): BP systolic 91–174; BP diastolic 57–106
[2020-05-19] MEDS: IPRATROPIUM BROM 0.5 MG/2.5ML INH SOL NEB SCH ×6 (02:35→22:37)
[2020-05-19] MEDS: ACETYLCYSTEINE 10 %(100MG/ML) SOL 4ML NEB SCH ×6 (02:35→22:37)
[2020-05-19] MEDS: LEVALBUTEROL HCL 1.25 MG/3 ML NEB NEB SCH ×6 (02:35→22:37)
[2020-05-19 04:20] LABS: Basophils # (auto) 0 10 ^3/uL (0-0.2); Basophils % (auto) 0.1 % (0.0-2.0); Eosinophils # (auto) 0 10 ^3/uL (0-0.8); Eosinophils % (auto) 0.1 % (0.0-7.0); Hematocrit 33.1 % (41.0-53.0); Hemoglobin 11.1 g/dL (13.5-17.5); Lymphocytes # (auto) 1.1 10 ^3/uL (0.4-5.4); Lymphocytes % (auto) 4.1 % (10.0-50.0); Mean Corpuscular Hemoglobin 33.8 pg (28.0-32.0); Mean Corpuscular Hgb Conc. 33.6 g/dL (32.0-36.0); Mean Corpuscular Volume 100.6 fL (80.0-100.0); Monocytes # (auto) 1.1 10 ^3/uL (0-1.3); Monocytes % (auto) 3.9 % (0.0-12.0); Neutrophils # (auto) 24.8 10 ^3/uL (1.6-8.6); Neutrophils % (auto) 91.8 % (37.0-80.0); Nucleated Red Blood Cells % 0.1 %; Platelet Count (auto) 252 10^3/uL (140-450); Red Blood Cells 3.29 10^6/uL (4.5-5.90); Red Cell Distribution Width 13.8 % (11.8-14.3)
[2020-05-19 04:41] LABS: Albumin 2.2 g/dL (3.4-5.0); Potassium 3.8 mmol/L (3.5-5.1)
[2020-05-19 04:45] LABS: BUN/Creatinine Ratio 24.1; Bilirubin, Total 0.2 mg/dL (0.2-1.0); Calcium 8.4 mg/dL (8.5-10.1); Total Protein 7.1 g/dL (6.4-8.2)
[2020-05-19] MEDS: metroNIDAZOLE 500MG/100ML 100 ML IV SCH ×3 (05:04→22:07)
[2020-05-19] MEDS: VANCOMYCIN HCL 500MG/5ML ORAL SOL GT SCH ×5 (05:53→22:07)
[2020-05-19] MEDS: PIPERACILLIN-TAZOB 3.375GM 100 ML IV SCH ×3 (06:11→17:58)
[2020-05-19] MEDS: AMIODARONE 450mg/250ml AE 250 ML IV SCH ×3 (06:14→21:23)
[2020-05-19] MEDS: SODIUM CHLORIDE 0.9% 1,000 ML IV SCH ×3 (07:00→23:37)
[2020-05-19] MEDS: THIAMINE 100mg/ml INJ (200mg/2ml VIAL) IV SCH (09:44)
[2020-05-19] MEDS: GABAPENTIN 300 MG CAP PO SCH ×2 (09:46→22:06)
[2020-05-19] MEDS: METOPROLOL TARTRATE 25 MG TAB PO SCH ×2 (09:46→19:21)
[2020-05-19] MEDS: FOLIC ACID 1 MG in D5W 5% 50 ML INJ SCH (09:47)
[2020-05-19] MEDS: fentaNYL Drip 2500mCg/250mlNS 250 ML IV SCH (10:15)
[2020-05-19] MEDS: MIDAZOLAM DRIP 50 mg/50mL 50 ML IV SCH (14:30)
[2020-05-19] MEDS: NOREPINEPHRINE 8 MG/250ML KIT 250 ML IV SCH (15:00)
[2020-05-19] MEDS: chlordiazePOXIDE HCL 25 MG CAP PO PRN (16:01)
[2020-05-19] MEDS: PROPOFOL 100 ML IV SCH (23:00)
[2020-05-20] VITALS (103 sets, daily range): BP systolic 91–141; BP diastolic 57–99
[2020-05-20] MEDS: PIPERACILLIN-TAZOB 3.375GM 100 ML IV SCH ×5 (00:17→23:58)
[2020-05-20] MEDS: LEVALBUTEROL HCL 1.25 MG/3 ML NEB NEB SCH ×6 (02:06→22:26)
[2020-05-20] MEDS: ACETYLCYSTEINE 10 %(100MG/ML) SOL 4ML NEB SCH ×6 (02:06→22:27)
[2020-05-20] MEDS: IPRATROPIUM BROM 0.5 MG/2.5ML INH SOL NEB SCH ×6 (02:06→22:26)
[2020-05-20 04:16] LABS: Basophils # (auto) 0 10 ^3/uL (0-0.2); Basophils % (auto) 0.1 % (0.0-2.0); Eosinophils # (auto) 0 10 ^3/uL (0-0.8); Eosinophils % (auto) 0.2 % (0.0-7.0); Hematocrit 33.8 % (41.0-53.0); Hemoglobin 11.2 g/dL (13.5-17.5); Lymphocytes # (auto) 1.2 10 ^3/uL (0.4-5.4); Lymphocytes % (auto) 6.4 % (10.0-50.0); Mean Corpuscular Hemoglobin 33.3 pg (28.0-32.0); Mean Corpuscular Hgb Conc. 33.2 g/dL (32.0-36.0); Mean Corpuscular Volume 100.1 fL (80.0-100.0); Monocytes # (auto) 0.8 10 ^3/uL (0-1.3); Monocytes % (auto) 4.4 % (0.0-12.0); Neutrophils # (auto) 16.4 10 ^3/uL (1.6-8.6); Neutrophils % (auto) 88.9 % (37.0-80.0); Platelet Count (auto) 295 10^3/uL (140-450); Red Blood Cells 3.37 10^6/uL (4.5-5.90); Red Cell Distribution Width 13.8 % (11.8-14.3); White Blood Cell 18.4 10^3/uL (4.4-10.8)
[2020-05-20 04:37] LABS: Potassium 3.6 mmol/L (3.5-5.1)
[2020-05-20 04:44] LABS: BUN/Creatinine Ratio 20.8; Bilirubin, Total 0.3 mg/dL (0.2-1.0); Calcium 8.5 mg/dL (8.5-10.1)
[2020-05-20] MEDS: VANCOMYCIN HCL 500MG/5ML ORAL SOL GT SCH ×2 (06:32→11:46)
[2020-05-20] MEDS: metroNIDAZOLE 500MG/100ML 100 ML IV SCH ×3 (06:32→21:58)
[2020-05-20] MEDS: SODIUM CHLORIDE 0.9% 1,000 ML IV SCH ×4 (07:00→20:00)
[2020-05-20] MEDS ORDERED: ADENOSINE 6 MG/2 ML INJ IV ONE ×2 (08:45→08:46)
[2020-05-20] MEDS: MAGNESIUM OXIDE 400 MG TAB PO SCH ×2 (09:11→21:56)
[2020-05-20] MEDS: GABAPENTIN 300 MG CAP PO SCH ×2 (09:11→21:56)
[2020-05-20] MEDS: THIAMINE 100mg/ml INJ (200mg/2ml VIAL) IV SCH (09:11)
[2020-05-20] MEDS: METOPROLOL TARTRATE 25 MG TAB PO SCH ×2 (09:11→21:57)
[2020-05-20] MEDS: chlordiazePOXIDE HCL 25 MG CAP PO PRN ×3 (09:12→21:56)
[2020-05-20] MEDS: FOLIC ACID 1 MG in D5W 5% 50 ML INJ SCH (09:13)
[2020-05-20] MEDS: fentaNYL Drip 2500mCg/250mlNS 250 ML IV SCH (10:15)
[2020-05-20] MEDS ORDERED: AMIODARONE HCL 200 MG TAB PO ONE (11:15)
[2020-05-20] MEDS ORDERED: POTASSIUM EFFERVESENT TAB 25 MEQ GT ONE (11:15)
[2020-05-20] MEDS: MIDAZOLAM DRIP 50 mg/50mL 50 ML IV SCH (14:30)
[2020-05-20] MEDS: NOREPINEPHRINE 8 MG/250ML KIT 250 ML IV SCH (14:56)
[2020-05-20] MEDS: AMIODARONE HCL 200 MG TAB PO SCH (21:57)
[2020-05-20] MEDS: PROPOFOL 100 ML IV SCH (23:00)
[2020-05-21] VITALS (102 sets, daily range): BP systolic 94–134; BP diastolic 57–96
[2020-05-21] MEDS: ACETYLCYSTEINE 10 %(100MG/ML) SOL 4ML NEB SCH ×6 (02:14→22:26)
[2020-05-21] MEDS: LEVALBUTEROL HCL 1.25 MG/3 ML NEB NEB SCH ×6 (02:14→22:26)
[2020-05-21] MEDS: IPRATROPIUM BROM 0.5 MG/2.5ML INH SOL NEB SCH ×6 (02:14→22:26)
[2020-05-21 04:22] LABS: Basophils # (auto) 0.1 10 ^3/uL (0-0.2); Basophils % (auto) 0.7 % (0.0-2.0); Eosinophils # (auto) 0.1 10 ^3/uL (0-0.8); Eosinophils % (auto) 0.6 % (0.0-7.0); Hematocrit 29.1 % (41.0-53.0); Hemoglobin 9.9 g/dL (13.5-17.5); Lymphocytes # (auto) 1.5 10 ^3/uL (0.4-5.4); Lymphocytes % (auto) 14.4 % (10.0-50.0); Mean Corpuscular Hgb Conc. 34.1 g/dL (32.0-36.0); Mean Corpuscular Volume 99.6 fL (80.0-100.0); Monocytes # (auto) 0.7 10 ^3/uL (0-1.3); Monocytes % (auto) 6.5 % (0.0-12.0); Neutrophils # (auto) 7.9 10 ^3/uL (1.6-8.6); Neutrophils % (auto) 77.8 % (37.0-80.0); Nucleated Red Blood Cells % 0.1 %; Platelet Count (auto) 334 10^3/uL (140-450); Red Blood Cells 2.92 10^6/uL (4.5-5.90); Red Cell Distribution Width 13.7 % (11.8-14.3); White Blood Cell 10.1 10^3/uL (4.4-10.8)
[2020-05-21] MEDS: PIPERACILLIN-TAZOB 3.375GM 100 ML IV SCH ×2 (04:30→12:20)
[2020-05-21 04:49] LABS: Albumin 1.8 g/dL (3.4-5.0); BUN/Creatinine Ratio 22.9; Bilirubin, Total 0.3 mg/dL (0.2-1.0); Calcium 7.9 mg/dL (8.5-10.1); Total Protein 6.4 g/dL (6.4-8.2)
[2020-05-21 05:22] LABS: Potassium 2.9 mmol/L (3.5-5.1)
[2020-05-21] MEDS: metroNIDAZOLE 500MG/100ML 100 ML IV SCH ×3 (06:30→21:55)
[2020-05-21] MEDS: POTASSIUM CHL 20MEQ/100ML 100 ML IV SCH ×4 (08:41→12:07)
[2020-05-21] MEDS: fentaNYL Drip 2500mCg/250mlNS 250 ML IV SCH (10:15)
[2020-05-21] MEDS: FOLIC ACID 1 MG in D5W 5% 50 ML INJ SCH (10:45)
[2020-05-21] MEDS: THIAMINE 100mg/ml INJ (200mg/2ml VIAL) IV SCH (10:46)
[2020-05-21] MEDS: METOPROLOL TARTRATE 25 MG TAB PO SCH ×2 (10:46→21:56)
[2020-05-21] MEDS: POTASSIUM EFFERVESENT TAB 25 MEQ GT SCH (10:47)
[2020-05-21] MEDS: GABAPENTIN 300 MG CAP PO SCH ×2 (10:47→21:56)
[2020-05-21] MEDS: MAGNESIUM OXIDE 400 MG TAB PO SCH ×2 (10:47→21:56)
[2020-05-21] MEDS: AMIODARONE HCL 200 MG TAB PO SCH ×2 (10:47→21:56)
[2020-05-21] MEDS: MIDAZOLAM DRIP 50 mg/50mL 50 ML IV SCH (14:30)
[2020-05-21] MEDS: NOREPINEPHRINE 8 MG/250ML KIT 250 ML IV SCH (15:00)
[2020-05-21] MEDS: SODIUM CHLORIDE 0.9% 1,000 ML IV SCH ×2 (17:30→21:56)
[2020-05-21] MEDS: PROPOFOL 100 ML IV SCH (23:00)
[2020-05-22] VITALS (108 sets, daily range): BP systolic 102–174; BP diastolic 64–118
[2020-05-22] MEDS: IPRATROPIUM BROM 0.5 MG/2.5ML INH SOL NEB SCH ×6 (02:16→22:13)
[2020-05-22] MEDS: ACETYLCYSTEINE 10 %(100MG/ML) SOL 4ML NEB SCH ×6 (02:17→22:13)
[2020-05-22] MEDS: LEVALBUTEROL HCL 1.25 MG/3 ML NEB NEB SCH ×6 (02:17→22:13)
[2020-05-22 05:49] LABS: Hematocrit 29.7 % (41.0-53.0); Mean Corpuscular Hemoglobin 33.6 pg (28.0-32.0); Mean Corpuscular Hgb Conc. 33.8 g/dL (32.0-36.0); Mean Corpuscular Volume 99.3 fL (80.0-100.0); Platelet Count (auto) 411 10^3/uL (140-450); Red Blood Cells 2.99 10^6/uL (4.5-5.90); Red Cell Distribution Width 13.6 % (11.8-14.3); White Blood Cell 9.5 10^3/uL (4.4-10.8)
[2020-05-22] MEDS: metroNIDAZOLE 500MG/100ML 100 ML IV SCH ×3 (06:01→21:42)
[2020-05-22 06:07] LABS: Calcium 8.2 mg/dL (8.5-10.1); Potassium 4.3 mmol/L (3.5-5.1)
[2020-05-22 06:12] LABS: BUN/Creatinine Ratio 21.3; Bilirubin, Total 0.2 mg/dL (0.2-1.0); Total Protein 6.7 g/dL (6.4-8.2)
[2020-05-22 06:14] LABS: Basophils % (manual) 0 (0.0-2.0); Blast Cells 0; Myelocytes % 0; Promyelocytes % 0; Reactive Lymphocytes 0
[2020-05-22] MEDS ORDERED: APIXABAN 5 MG TAB PO SCH (10:00)
[2020-05-22 10:15] LABS: Band Neutrophils % (manual) 6; Eosinophils % (manual) 2 (0-7); Lymphocytes % (manual) 10 (10.0-50.0); Metamyelocytes % 1; Monocytes % (manual) 7 (0-12)
[2020-05-22] MEDS: fentaNYL Drip 2500mCg/250mlNS 250 ML IV SCH (10:15)
[2020-05-22] MEDS: THIAMINE 100mg/ml INJ (200mg/2ml VIAL) IV SCH (10:20)
[2020-05-22] MEDS: METOPROLOL TARTRATE 25 MG TAB PO SCH ×2 (10:21→21:42)
[2020-05-22] MEDS: SODIUM CHLORIDE 0.9% 1,000 ML IV SCH ×2 (10:21→20:00)
[2020-05-22] MEDS: MAGNESIUM OXIDE 400 MG TAB PO SCH ×2 (10:21→21:42)
[2020-05-22] MEDS: GABAPENTIN 300 MG CAP PO SCH (10:21)
[2020-05-22] MEDS: AMIODARONE HCL 200 MG TAB PO SCH ×2 (10:21→21:42)
[2020-05-22] MEDS: FOLIC ACID 1 MG in D5W 5% 50 ML INJ SCH (10:49)
[2020-05-22] MEDS: POTASSIUM EFFERVESENT TAB 25 MEQ GT SCH (10:49)
[2020-05-22] MEDS ORDERED: cefTRIAXone 1GM/50ML D5W 50 ML IV ONE (13:15)
[2020-05-22] MEDS: MIDAZOLAM DRIP 50 mg/50mL 50 ML IV SCH (14:30)
[2020-05-22] MEDS: NOREPINEPHRINE 8 MG/250ML KIT 250 ML IV SCH (15:00)
[2020-05-22] MEDS ORDERED: TPN PER PHARMACY 0 ML IV SCH (15:30)
[2020-05-22 15:52] LABS: Magnesium 2.4 mg/dL (1.6-2.6); Phosphorus 3.7 mg/dL (2.5-4.90)
[2020-05-22] MEDS ORDERED: METOPROLOL TARTRATE 25 MG TAB PO ONE (17:15)
[2020-05-22] MEDS ORDERED: AMINO ACID ELECTROLYTE W/ CALC 1,000 ML IV NR (20:00)
[2020-05-22] MEDS: LABETALOL HCL 5 MG/ML 4ML SYRINGE IV PRN (20:46)
[2020-05-22] MEDS: PROPOFOL 100 ML IV SCH (23:00)
[2020-05-23] VITALS (74 sets, daily range): BP systolic 118–169; BP diastolic 82–121
[2020-05-23] MEDS ORDERED: DEXTROSE (50%) 50ML SYRG IV SCH
[2020-05-23] MEDS: ACCU-CHEK COMFORT CURVE STRIP VI SCH ×5 (00:07→23:42)
[2020-05-23] MEDS: LABETALOL HCL 5 MG/ML 4ML SYRINGE IV PRN ×4 (00:09→07:52)
[2020-05-23] MEDS: IPRATROPIUM BROM 0.5 MG/2.5ML INH SOL NEB SCH ×6 (02:17→22:05)
[2020-05-23] MEDS: LEVALBUTEROL HCL 1.25 MG/3 ML NEB NEB SCH ×6 (02:17→22:05)
[2020-05-23] MEDS: ACETYLCYSTEINE 10 %(100MG/ML) SOL 4ML NEB SCH ×6 (02:17→22:04)
[2020-05-23 03:52] LABS: Basophils # (auto) 0 10 ^3/uL (0-0.2); Eosinophils # (auto) 0.1 10 ^3/uL (0-0.8); Lymphocytes # (auto) 1.3 10 ^3/uL (0.4-5.4); Mean Corpuscular Volume 99.2 fL (80.0-100.0); Monocytes # (auto) 0.8 10 ^3/uL (0-1.3); Nucleated Red Blood Cells % 0.1 %
[2020-05-23 03:56] LABS: Basophils % (auto) 0.5 % (0.0-2.0); Eosinophils % (auto) 1.2 % (0.0-7.0); Hematocrit 29.8 % (41.0-53.0); Hemoglobin 10.2 g/dL (13.5-17.5); Lymphocytes % (auto) 13.7 % (10.0-50.0); Mean Corpuscular Hgb Conc. 34.3 g/dL (32.0-36.0); Monocytes % (auto) 8.4 % (0.0-12.0); Neutrophils # (auto) 7.5 10 ^3/uL (1.6-8.6); Neutrophils % (auto) 76.2 % (37.0-80.0); Platelet Count (auto) 457 10^3/uL (140-450); Red Cell Distribution Width 13.6 % (11.8-14.3); White Blood Cell 9.8 10^3/uL (4.4-10.8)
[2020-05-23 04:08] LABS: Potassium 3.8 mmol/L (3.5-5.1)
[2020-05-23 04:17] LABS: Albumin 1.9 g/dL (3.4-5.0); Bilirubin, Total 0.2 mg/dL (0.2-1.0); Calcium 7.9 mg/dL (8.5-10.1); Phosphorus 2.7 mg/dL (2.5-4.90); Pre Albumin 14.7 mg/dL (20.0-40.0); Total Protein 6.5 g/dL (6.4-8.2)
[2020-05-23] MEDS: metroNIDAZOLE 500MG/100ML 100 ML IV SCH ×3 (05:30→22:03)
[2020-05-23] MEDS: InsuLIN REG 1unit/0.01ml Soln (100units/ml) SC SCH ×5 (05:33→23:40)
[2020-05-23] MEDS ORDERED: LABETALOL HCL 5 MG/ML ML 20ML VIAL IV ONE (07:39)
[2020-05-23] MEDS: fentaNYL Drip 2500mCg/250mlNS 250 ML IV SCH (10:15)
[2020-05-23] MEDS ORDERED: APIXABAN 5 MG TAB PO ONE (11:00)
[2020-05-23] MEDS ORDERED: APIXABAN 5 MG TAB ONE (11:01)
[2020-05-23] MEDS: POTASSIUM EFFERVESENT TAB 25 MEQ GT SCH (11:22)
[2020-05-23] MEDS: FOLIC ACID 1 MG in D5W 5% 50 ML INJ SCH (11:22)
[2020-05-23] MEDS: cefTRIAXone 1GM/50ML D5W 50 ML IV SCH (11:22)
[2020-05-23] MEDS: AMIODARONE HCL 200 MG TAB PO SCH ×2 (11:23→22:04)
[2020-05-23] MEDS: THIAMINE 100mg/ml INJ (200mg/2ml VIAL) IV SCH (11:23)
[2020-05-23] MEDS: MAGNESIUM OXIDE 400 MG TAB PO SCH (11:24)
[2020-05-23] MEDS: METOPROLOL TARTRATE 25 MG TAB PO SCH ×2 (11:24→22:04)
[2020-05-23] MEDS: ACETAMINOPHEN 650 mg PER 20.3 mL UD GT PRN (13:28)
[2020-05-23] MEDS: MIDAZOLAM DRIP 50 mg/50mL 50 ML IV SCH (14:30)
[2020-05-23] MEDS: NOREPINEPHRINE 8 MG/250ML KIT 250 ML IV SCH (15:00)
[2020-05-23] MEDS ORDERED: TPN PER PHARMACY IV NR ×9 (20:00)
[2020-05-23] MEDS ORDERED: APIXABAN 5 MG TAB PO SCH (22:00)
[2020-05-23] MEDS: ENOXAPARIN SOD 100 MG/1 ML SYRINGE SC SCH (22:06)
[2020-05-23] MEDS: PROPOFOL 100 ML IV SCH (23:00)
[2020-05-24] VITALS (44 sets, daily range): BP systolic 103–164; BP diastolic 72–110
[2020-05-24] MEDS ORDERED: PHENYLEPHRINE IV 0 ML IV ONE
[2020-05-24] MEDS: ACETAMINOPHEN 650 mg PER 20.3 mL UD GT PRN (01:04)
[2020-05-24] MEDS: LEVALBUTEROL HCL 1.25 MG/3 ML NEB NEB SCH ×6 (02:11→22:10)
[2020-05-24] MEDS: ACETYLCYSTEINE 10 %(100MG/ML) SOL 4ML NEB SCH ×6 (02:11→22:10)
[2020-05-24] MEDS: IPRATROPIUM BROM 0.5 MG/2.5ML INH SOL NEB SCH ×6 (02:11→22:10)
[2020-05-24 04:17] LABS: Basophils # (auto) 0.1 10 ^3/uL (0-0.2); Basophils % (auto) 0.5 % (0.0-2.0); Eosinophils # (auto) 0.1 10 ^3/uL (0-0.8); Hematocrit 31.6 % (41.0-53.0); Hemoglobin 10.8 g/dL (13.5-17.5); Lymphocytes # (auto) 1.3 10 ^3/uL (0.4-5.4); Lymphocytes % (auto) 11.9 % (10.0-50.0); Mean Corpuscular Hemoglobin 33.7 pg (28.0-32.0); Mean Corpuscular Hgb Conc. 34.2 g/dL (32.0-36.0); Mean Corpuscular Volume 98.7 fL (80.0-100.0); Monocytes # (auto) 0.9 10 ^3/uL (0-1.3); Monocytes % (auto) 7.9 % (0.0-12.0); Neutrophils # (auto) 8.8 10 ^3/uL (1.6-8.6); Neutrophils % (auto) 78.7 % (37.0-80.0); Nucleated Red Blood Cells % 0.1 %; Platelet Count (auto) 553 10^3/uL (140-450); Red Cell Distribution Width 13.3 % (11.8-14.3); White Blood Cell 11.2 10^3/uL (4.4-10.8)
[2020-05-24 04:36] LABS: Albumin 2.2 g/dL (3.4-5.0); Calcium 8.7 mg/dL (8.5-10.1); Magnesium 2.3 mg/dL (1.6-2.6); Potassium 3.9 mmol/L (3.5-5.1)
[2020-05-24 04:40] LABS: BUN/Creatinine Ratio 16.7; Bilirubin, Total 0.2 mg/dL (0.2-1.0); Phosphorus 3.6 mg/dL (2.5-4.90); Total Protein 6.9 g/dL (6.4-8.2)
[2020-05-24] MEDS: metroNIDAZOLE 500MG/100ML 100 ML IV SCH ×3 (05:54→21:19)
[2020-05-24] MEDS: InsuLIN REG 1unit/0.01ml Soln (100units/ml) SC SCH ×4 (06:05→23:46)
[2020-05-24] MEDS: ACCU-CHEK COMFORT CURVE STRIP VI SCH ×4 (06:05→23:46)
[2020-05-24] MEDS: ENOXAPARIN SOD 100 MG/1 ML SYRINGE SC SCH ×2 (10:05→21:20)
[2020-05-24] MEDS: THIAMINE 100mg/ml INJ (200mg/2ml VIAL) IV SCH (10:05)
[2020-05-24] MEDS: cefTRIAXone 1GM/50ML D5W 50 ML IV SCH (10:05)
[2020-05-24] MEDS: AMIODARONE HCL 200 MG TAB PO SCH ×2 (10:06→21:19)
[2020-05-24] MEDS: METOPROLOL TARTRATE 25 MG TAB PO SCH ×2 (10:06→21:20)
[2020-05-24] MEDS: fentaNYL Drip 2500mCg/250mlNS 250 ML IV SCH (10:15)
[2020-05-24] MEDS: FOLIC ACID 1 MG in D5W 5% 50 ML INJ SCH (13:31)
[2020-05-24] MEDS ORDERED: BACLOFEN 10 MG TAB GT SCH (14:00)
[2020-05-24] MEDS: MIDAZOLAM DRIP 50 mg/50mL 50 ML IV SCH (14:30)
[2020-05-24] MEDS ORDERED: TPN PER PHARMACY IV NR ×9 (20:00)
[2020-05-24] MEDS: PROPOFOL 100 ML IV SCH (23:00)
[2020-05-25] VITALS (35 sets, daily range): BP systolic 127–165; BP diastolic 80–114
[2020-05-25] MEDS: LABETALOL HCL 5 MG/ML 4ML SYRINGE IV PRN ×2 (01:18→15:01)
[2020-05-25] MEDS: IPRATROPIUM BROM 0.5 MG/2.5ML INH SOL NEB SCH ×5 (02:01→18:56)
[2020-05-25] MEDS: LEVALBUTEROL HCL 1.25 MG/3 ML NEB NEB SCH ×5 (02:01→18:55)
[2020-05-25] MEDS: ACETYLCYSTEINE 10 %(100MG/ML) SOL 4ML NEB SCH ×5 (02:01→18:56)
[2020-05-25] MEDS ORDERED: hydrALAZINE HCL 20 MG/ML VL IV ONE (03:15)
[2020-05-25 04:24] LABS: Basophils # (auto) 0.1 10 ^3/uL (0-0.2); Eosinophils # (auto) 0.2 10 ^3/uL (0-0.8); Lymphocytes # (auto) 1.7 10 ^3/uL (0.4-5.4); Monocytes # (auto) 1.1 10 ^3/uL (0-1.3); Nucleated Red Blood Cells % 0.1 %; Red Blood Cells 3.37 10^6/uL (4.5-5.90); White Blood Cell 11.1 10^3/uL (4.4-10.8)
[2020-05-25 04:25] LABS: Basophils % (auto) 1.1 % (0.0-2.0); Eosinophils % (auto) 1.7 % (0.0-7.0); Hematocrit 33.2 % (41.0-53.0); Hemoglobin 11.3 g/dL (13.5-17.5); Lymphocytes % (auto) 15.1 % (10.0-50.0); Mean Corpuscular Hemoglobin 33.6 pg (28.0-32.0); Mean Corpuscular Hgb Conc. 34.1 g/dL (32.0-36.0); Mean Corpuscular Volume 98.5 fL (80.0-100.0); Monocytes % (auto) 9.8 % (0.0-12.0); Neutrophils % (auto) 72.3 % (37.0-80.0); Platelet Count (auto) 642 10^3/uL (140-450); Red Cell Distribution Width 13.3 % (11.8-14.3)
[2020-05-25 04:38] LABS: Calcium 8.7 mg/dL (8.5-10.1); Potassium 4.1 mmol/L (3.5-5.1)
[2020-05-25 04:44] LABS: Albumin 2.2 g/dL (3.4-5.0); BUN/Creatinine Ratio 15.5; Bilirubin, Total 0.2 mg/dL (0.2-1.0); Magnesium 2.1 mg/dL (1.6-2.6); Phosphorus 3.2 mg/dL (2.5-4.90); Total Protein 7.4 g/dL (6.4-8.2)
[2020-05-25] MEDS: metroNIDAZOLE 500MG/100ML 100 ML IV SCH ×3 (05:25→23:01)
[2020-05-25] MEDS: ACCU-CHEK COMFORT CURVE STRIP VI SCH ×3 (05:43→18:18)
[2020-05-25] MEDS: InsuLIN REG 1unit/0.01ml Soln (100units/ml) SC SCH ×3 (05:43→18:00)
[2020-05-25] MEDS: FOLIC ACID 1 MG in D5W 5% 50 ML INJ SCH (09:47)
[2020-05-25] MEDS: AMIODARONE HCL 200 MG TAB PO SCH ×2 (09:48→21:25)
[2020-05-25] MEDS: THIAMINE 100mg/ml INJ (200mg/2ml VIAL) IV SCH (09:48)
[2020-05-25] MEDS: METOPROLOL TARTRATE 25 MG TAB PO SCH ×2 (09:49→21:25)
[2020-05-25] MEDS: ENOXAPARIN SOD 100 MG/1 ML SYRINGE SC SCH ×4 (09:49→23:01)
[2020-05-25] MEDS: fentaNYL Drip 2500mCg/250mlNS 250 ML IV SCH (09:49)
[2020-05-25] MEDS: cefTRIAXone 1GM/50ML D5W 50 ML IV SCH (10:03)
[2020-05-25] MEDS ORDERED: LORazepam 2MG/ML-1ML VIAL ONE (12:18)
[2020-05-25] MEDS ORDERED: LORazepam 2MG/ML-1ML VIAL IV ONE (12:30)
[2020-05-25] MEDS: ESOMEPRAZOLE 40 MG/5ml VIAL INJ IV SCH (14:59)
[2020-05-25] MEDS ORDERED: TPN PER PHARMACY IV NR ×8 (20:00)
[2020-05-25] MEDS ORDERED: ADENOSINE 6 MG/2 ML INJ IV ONE ×2 (22:00→22:06)
[2020-05-25] MEDS ORDERED: dilTIAZem 25 MG/5 ML VIAL IV ONE ×2 (22:11→22:15)
[2020-05-26] VITALS (61 sets, daily range): BP systolic 127–172; BP diastolic 85–114
[2020-05-26] MEDS: ACCU-CHEK COMFORT CURVE STRIP VI SCH ×5 (00:06→23:41)
[2020-05-26] MEDS: IPRATROPIUM BROM 0.5 MG/2.5ML INH SOL NEB SCH ×4 (00:37→18:04)
[2020-05-26] MEDS: ACETYLCYSTEINE 10 %(100MG/ML) SOL 4ML NEB SCH ×4 (00:38→18:05)
[2020-05-26] MEDS: LEVALBUTEROL HCL 1.25 MG/3 ML NEB NEB SCH ×4 (00:38→18:05)
[2020-05-26] MEDS: LABETALOL HCL 5 MG/ML 4ML SYRINGE IV PRN ×3 (02:32→22:15)
[2020-05-26 05:13] LABS: Basophils # (auto) 0.1 10 ^3/uL (0-0.2); Basophils % (auto) 0.9 % (0.0-2.0); Eosinophils # (auto) 0.1 10 ^3/uL (0-0.8); Eosinophils % (auto) 0.7 % (0.0-7.0); Hematocrit 34.8 % (41.0-53.0); Hemoglobin 11.8 g/dL (13.5-17.5); Lymphocytes # (auto) 1.4 10 ^3/uL (0.4-5.4); Lymphocytes % (auto) 11.9 % (10.0-50.0); Mean Corpuscular Hemoglobin 33.6 pg (28.0-32.0); Mean Corpuscular Volume 98.8 fL (80.0-100.0); Monocytes # (auto) 1.3 10 ^3/uL (0-1.3); Neutrophils # (auto) 9.2 10 ^3/uL (1.6-8.6); Neutrophils % (auto) 75.5 % (37.0-80.0); Nucleated Red Blood Cells % 0.1 %; Platelet Count (auto) 641 10^3/uL (140-450); Red Blood Cells 3.52 10^6/uL (4.5-5.90); Red Cell Distribution Width 13.8 % (11.8-14.3); White Blood Cell 12.1 10^3/uL (4.4-10.8)
[2020-05-26 05:35] LABS: Albumin 2.2 g/dL (3.4-5.0); Calcium 8.6 mg/dL (8.5-10.1); Magnesium 2.2 mg/dL (1.6-2.6); Potassium 3.8 mmol/L (3.5-5.1)
[2020-05-26 05:40] LABS: BUN/Creatinine Ratio 20.5; Bilirubin, Total 0.2 mg/dL (0.2-1.0); Total Protein 7.2 g/dL (6.4-8.2)
[2020-05-26] MEDS: InsuLIN REG 1unit/0.01ml Soln (100units/ml) SC SCH ×5 (06:37→23:41)
[2020-05-26] MEDS: metroNIDAZOLE 500MG/100ML 100 ML IV SCH ×3 (06:37→20:16)
[2020-05-26] MEDS: AMIODARONE HCL 200 MG TAB PO SCH ×2 (10:00→22:00)
[2020-05-26] MEDS: cefTRIAXone 1GM/50ML D5W 50 ML IV SCH (10:08)
[2020-05-26] MEDS: ESOMEPRAZOLE 40 MG/5ml VIAL INJ IV SCH (10:09)
[2020-05-26] MEDS: ENOXAPARIN SOD 100 MG/1 ML SYRINGE SC SCH ×2 (10:09→20:17)
[2020-05-26] MEDS: THIAMINE 100mg/ml INJ (200mg/2ml VIAL) IV SCH (10:09)
[2020-05-26] MEDS ORDERED: LABETALOL HCL 5 MG/ML 4ML SYRINGE IV PRN (10:15)
[2020-05-26] MEDS: FOLIC ACID 1 MG in D5W 5% 50 ML INJ SCH (10:33)
[2020-05-26] MEDS: MORPHINE SULF INJ 2 MG/ML SYRINGE 1ML IV PRN ×2 (17:02→22:02)
[2020-05-26] MEDS ORDERED: TPN PER PHARMACY IV NR ×9 (20:00)
[2020-05-27] VITALS (23 sets, daily range): BP systolic 102–157; BP diastolic 51–137
[2020-05-27] MEDS: ACETYLCYSTEINE 10 %(100MG/ML) SOL 4ML NEB SCH ×4 (00:04→18:07)
[2020-05-27] MEDS: LEVALBUTEROL HCL 1.25 MG/3 ML NEB NEB SCH ×4 (00:04→18:07)
[2020-05-27] MEDS: IPRATROPIUM BROM 0.5 MG/2.5ML INH SOL NEB SCH ×4 (00:04→18:07)
[2020-05-27] MEDS: LABETALOL HCL 5 MG/ML 4ML SYRINGE IV PRN (03:05)
[2020-05-27] MEDS: InsuLIN REG 1unit/0.01ml Soln (100units/ml) SC SCH ×3 (06:00→18:00)
[2020-05-27] MEDS: ACCU-CHEK COMFORT CURVE STRIP VI SCH ×3 (06:17→18:07)
[2020-05-27] MEDS: metroNIDAZOLE 500MG/100ML 100 ML IV SCH (06:17)
[2020-05-27 06:19] LABS: Albumin 2.3 g/dL (3.4-5.0); Calcium 8.3 mg/dL (8.5-10.1); Magnesium 2.1 mg/dL (1.6-2.6); Potassium 4.1 mmol/L (3.5-5.1)
[2020-05-27 06:23] LABS: BUN/Creatinine Ratio 22.4
[2020-05-27 06:24] LABS: Bilirubin, Total 0.3 mg/dL (0.2-1.0); Phosphorus 3.3 mg/dL (2.5-4.90); Total Protein 7.5 g/dL (6.4-8.2)
[2020-05-27] MEDS: FOLIC ACID 1 MG in D5W 5% 50 ML INJ SCH (09:06)
[2020-05-27] MEDS: cefTRIAXone 1GM/50ML D5W 50 ML IV SCH (09:06)
[2020-05-27] MEDS: ENOXAPARIN SOD 100 MG/1 ML SYRINGE SC SCH ×2 (09:07→21:26)
[2020-05-27] MEDS: AMIODARONE HCL 200 MG TAB PO SCH ×2 (09:07→20:43)
[2020-05-27] MEDS: ESOMEPRAZOLE 40 MG/5ml VIAL INJ IV SCH (09:07)
[2020-05-27] MEDS: THIAMINE 100mg/ml INJ (200mg/2ml VIAL) IV SCH (09:07)
[2020-05-27] MEDS: dilTIAZem 125mg/125ml BAG KIT 125 ML IV SCH (09:15)
[2020-05-27] MEDS ORDERED: ACETAMINOPHEN 650 MG RECT SUPP PR PRN (09:15)
[2020-05-27] MEDS: KETOROLAC TROMETH 30 MG/ML 1ML VIAL IV PRN ×2 (11:03→18:08)
[2020-05-27 11:09] LABS: Basophils # (auto) 0.1 10 ^3/uL (0-0.2); Basophils % (auto) 0.4 % (0.0-2.0); Eosinophils # (auto) 0 10 ^3/uL (0-0.8); Eosinophils % (auto) 0.3 % (0.0-7.0); Hematocrit 35.4 % (41.0-53.0); Hemoglobin 11.8 g/dL (13.5-17.5); Lymphocytes # (auto) 1.4 10 ^3/uL (0.4-5.4); Lymphocytes % (auto) 7.9 % (10.0-50.0); Mean Corpuscular Hemoglobin 33.3 pg (28.0-32.0); Mean Corpuscular Hgb Conc. 33.5 g/dL (32.0-36.0); Mean Corpuscular Volume 99.5 fL (80.0-100.0); Monocytes # (auto) 1.7 10 ^3/uL (0-1.3); Monocytes % (auto) 9.4 % (0.0-12.0); Neutrophils # (auto) 14.5 10 ^3/uL (1.6-8.6); Platelet Count (auto) 620 10^3/uL (140-450); Red Blood Cells 3.55 10^6/uL (4.5-5.90); Red Cell Distribution Width 13.8 % (11.8-14.3); White Blood Cell 17.7 10^3/uL (4.4-10.8)
[2020-05-27 11:19] LABS: Urine Bacteria NONE SEEN /hpf (None Seen); Urine Blood Negative /uL (Negative); Urine Hyaline Cast FEW /lpf (0 - 2); Urine Specific Gravity 1.023 (1.001-1.035); Urine WBC 4 /hpf (0 - 3)
[2020-05-27 12:48] LABS: INR 1.26 (0.9-1.15); Partial Thromboplastin Time 30.1 sec (23.0-31.2)
[2020-05-27] MEDS: MEROPENEM 1GM IVPB 100 ML IV SCH ×2 (14:14→21:26)
[2020-05-27] MEDS ORDERED: HYDROmorphone HCL 2 MG/ML VL IV ONE (15:15)
[2020-05-27] MEDS ORDERED: LIDOCAINE 1% (LOCAL ANESTH.) PF 5ml SDV ID ONE (15:30)
[2020-05-27] MEDS ORDERED: TPN PER PHARMACY IV NR ×10 (20:00)
[2020-05-27] MEDS: LINEZOLID 600MG/300ML 300 ML IV SCH (20:09)
[2020-05-28] VITALS (22 sets, daily range): BP systolic 103–160; BP diastolic 58–106
[2020-05-28] MEDS: LEVALBUTEROL HCL 1.25 MG/3 ML NEB NEB SCH ×4 (00:23→18:42)
[2020-05-28] MEDS: IPRATROPIUM BROM 0.5 MG/2.5ML INH SOL NEB SCH ×4 (00:24→18:42)
[2020-05-28] MEDS: ACETYLCYSTEINE 10 %(100MG/ML) SOL 4ML NEB SCH ×4 (00:24→18:42)
[2020-05-28] MEDS: ACCU-CHEK COMFORT CURVE STRIP VI SCH ×2 (00:29→06:01)
[2020-05-28 05:04] LABS: Basophils # (auto) 0 10 ^3/uL (0-0.2); Basophils % (auto) 0.3 % (0.0-2.0); Eosinophils # (auto) 0.1 10 ^3/uL (0-0.8); Hematocrit 31.4 % (41.0-53.0); Hemoglobin 10.4 g/dL (13.5-17.5); Lymphocytes # (auto) 1.4 10 ^3/uL (0.4-5.4); Lymphocytes % (auto) 10.5 % (10.0-50.0); Mean Corpuscular Hemoglobin 32.8 pg (28.0-32.0); Mean Corpuscular Hgb Conc. 33.3 g/dL (32.0-36.0); Mean Corpuscular Volume 98.6 fL (80.0-100.0); Monocytes # (auto) 1.1 10 ^3/uL (0-1.3); Monocytes % (auto) 8.5 % (0.0-12.0); Neutrophils # (auto) 10.5 10 ^3/uL (1.6-8.6); Neutrophils % (auto) 79.7 % (37.0-80.0); Platelet Count (auto) 480 10^3/uL (140-450); Red Blood Cells 3.18 10^6/uL (4.5-5.90); Red Cell Distribution Width 13.8 % (11.8-14.3); White Blood Cell 13.2 10^3/uL (4.4-10.8)
[2020-05-28 05:23] LABS: INR 1.36 (0.9-1.15); Partial Thromboplastin Time 38.7 sec (23.0-31.2)
[2020-05-28 05:24] LABS: Magnesium 2.5 mg/dL (1.6-2.6); Potassium 3.3 mmol/L (3.5-5.1)
[2020-05-28 05:31] LABS: BUN/Creatinine Ratio 36.1; Bilirubin, Total 0.2 mg/dL (0.2-1.0); Phosphorus 3.4 mg/dL (2.5-4.90); Pre Albumin 15.7 mg/dL (20.0-40.0); Total Protein 6.7 g/dL (6.4-8.2)
[2020-05-28] MEDS: InsuLIN REG 1unit/0.01ml Soln (100units/ml) SC SCH ×2 (06:00)
[2020-05-28] MEDS: MEROPENEM 1GM IVPB 100 ML IV SCH ×3 (06:13→22:09)
[2020-05-28] MEDS: dilTIAZem 125mg/125ml BAG KIT 125 ML IV SCH (09:15)
[2020-05-28] MEDS: LINEZOLID 600MG/300ML 300 ML IV SCH ×2 (09:24→21:46)
[2020-05-28] MEDS: AMIODARONE HCL 200 MG TAB PO SCH ×2 (09:24→21:46)
[2020-05-28] MEDS: POTASSIUM CHL 20MEQ/100ML 100 ML IV SCH ×2 (09:24→12:13)
[2020-05-28] MEDS: THIAMINE 100mg/ml INJ (200mg/2ml VIAL) IV SCH (09:25)
[2020-05-28] MEDS: ESOMEPRAZOLE 40 MG/5ml VIAL INJ IV SCH (09:25)
[2020-05-28] MEDS: ENOXAPARIN SOD 100 MG/1 ML SYRINGE SC SCH (09:25)
[2020-05-28] MEDS: FOLIC ACID 1 MG in D5W 5% 50 ML INJ SCH (10:00)
[2020-05-28] MEDS: HYDROcodone-ACET 5/325MG TAB PO PRN (18:47)
[2020-05-28] MEDS ORDERED: TPN PER PHARMACY IV NR ×10 (20:00)
[2020-05-28] MEDS: APIXABAN 5 MG TAB PO SCH (21:47)
[2020-05-29] VITALS (15 sets, daily range): BP systolic 136–166; BP diastolic 79–102
[2020-05-29] MEDS: LABETALOL HCL 5 MG/ML 4ML SYRINGE IV PRN (03:34)
[2020-05-29] MEDS: MEROPENEM 1GM IVPB 100 ML IV SCH ×3 (05:42→21:52)
[2020-05-29] MEDS: LEVALBUTEROL HCL 1.25 MG/3 ML NEB NEB SCH ×4 (07:25→18:25)
[2020-05-29] MEDS: ACETYLCYSTEINE 10 %(100MG/ML) SOL 4ML NEB SCH ×2 (07:25)
[2020-05-29] MEDS: IPRATROPIUM BROM 0.5 MG/2.5ML INH SOL NEB SCH ×4 (07:25→18:25)
[2020-05-29 07:59] LABS: Basophils # (auto) 0.1 10 ^3/uL (0-0.2); Lymphocytes # (auto) 1.5 10 ^3/uL (0.4-5.4); Neutrophils # (auto) 5.6 10 ^3/uL (1.6-8.6); White Blood Cell 8.2 10^3/uL (4.4-10.8)
[2020-05-29 08:03] LABS: Basophils % (auto) 1.2 % (0.0-2.0); Eosinophils # (auto) 0.2 10 ^3/uL (0-0.8); Eosinophils % (auto) 1.9 % (0.0-7.0); Hematocrit 27.7 % (41.0-53.0); Hemoglobin 9.6 g/dL (13.5-17.5); Lymphocytes % (auto) 17.9 % (10.0-50.0); Mean Corpuscular Hemoglobin 33.9 pg (28.0-32.0); Mean Corpuscular Hgb Conc. 34.7 g/dL (32.0-36.0); Mean Corpuscular Volume 97.8 fL (80.0-100.0); Monocytes # (auto) 0.9 10 ^3/uL (0-1.3); Monocytes % (auto) 11.2 % (0.0-12.0); Neutrophils % (auto) 67.8 % (37.0-80.0); Platelet Count (auto) 436 10^3/uL (140-450); Red Blood Cells 2.83 10^6/uL (4.5-5.90); Red Cell Distribution Width 13.5 % (11.8-14.3)
[2020-05-29] MEDS: LINEZOLID 600MG/300ML 300 ML IV SCH (08:21)
[2020-05-29] MEDS: dilTIAZem 125mg/125ml BAG KIT 125 ML IV SCH (08:21)
[2020-05-29] MEDS: THIAMINE 100mg/ml INJ (200mg/2ml VIAL) IV SCH (08:22)
[2020-05-29] MEDS: FOLIC ACID 1 MG in D5W 5% 50 ML INJ SCH (08:22)
[2020-05-29] MEDS: ESOMEPRAZOLE 40 MG/5ml VIAL INJ IV SCH (08:23)
[2020-05-29] MEDS: AMIODARONE HCL 200 MG TAB PO SCH ×2 (08:24→21:52)
[2020-05-29 08:45] LABS: Albumin 2.1 g/dL (3.4-5.0); Calcium 7.4 mg/dL (8.5-10.1); Potassium 3.4 mmol/L (3.5-5.1)
[2020-05-29 08:51] LABS: BUN/Creatinine Ratio 25.4; Bilirubin, Total 0.3 mg/dL (0.2-1.0); Total Protein 6.2 g/dL (6.4-8.2)
[2020-05-29] MEDS: APIXABAN 5 MG TAB PO SCH ×2 (10:00→21:53)
[2020-05-29] MEDS ORDERED: FOLIC ACID 1 MG TAB PO ONE (11:15)
[2020-05-29] MEDS ORDERED: POTASSIUM CHL 10 Meq TABLET PO ONE (11:15)
[2020-05-29] MEDS ORDERED: PANTOPRAZOLE 40 MG TAB PO ONE (11:15)
[2020-05-29] MEDS ORDERED: FUROSEMIDE 40 MG TAB PO ONE (11:45)
[2020-05-29] MEDS ORDERED: METOPROLOL TARTRATE 25 MG TAB PO ONE (11:45)
[2020-05-29] MEDS: HYDROcodone-ACET 5/325MG TAB PO PRN (20:09)
[2020-05-29] MEDS: METOPROLOL TARTRATE 25 MG TAB PO SCH (21:53)
[2020-05-30 04:55] VITALS: BP 150/98
[2020-05-30] MEDS: LABETALOL HCL 5 MG/ML 4ML SYRINGE IV PRN (05:27)
[2020-05-30 05:42] LABS: Basophils # (auto) 0.1 10 ^3/uL (0-0.2); Basophils % (auto) 1.3 % (0.0-2.0); Eosinophils # (auto) 0.1 10 ^3/uL (0-0.8); Eosinophils % (auto) 1.9 % (0.0-7.0); Hematocrit 30.8 % (41.0-53.0); Hemoglobin 10.5 g/dL (13.5-17.5); Lymphocytes # (auto) 1.6 10 ^3/uL (0.4-5.4); Lymphocytes % (auto) 24.8 % (10.0-50.0); Mean Corpuscular Hemoglobin 33.4 pg (28.0-32.0); Mean Corpuscular Hgb Conc. 34.1 g/dL (32.0-36.0); Monocytes # (auto) 0.9 10 ^3/uL (0-1.3); Monocytes % (auto) 13.6 % (0.0-12.0); Neutrophils # (auto) 3.9 10 ^3/uL (1.6-8.6); Neutrophils % (auto) 58.4 % (37.0-80.0); Platelet Count (auto) 467 10^3/uL (140-450); Red Blood Cells 3.14 10^6/uL (4.5-5.90); Red Cell Distribution Width 13.3 % (11.8-14.3); White Blood Cell 6.6 10^3/uL (4.4-10.8)
[2020-05-30] MEDS: MEROPENEM 1GM IVPB 100 ML IV SCH ×3 (05:48→21:27)
[2020-05-30] MEDS: LEVALBUTEROL HCL 1.25 MG/3 ML NEB NEB SCH ×3 (06:35→18:00)
[2020-05-30] MEDS: IPRATROPIUM BROM 0.5 MG/2.5ML INH SOL NEB SCH ×3 (06:35→18:00)
[2020-05-30] MEDS: METOPROLOL TARTRATE 25 MG TAB PO SCH ×2 (08:14→21:56)
[2020-05-30] MEDS: APIXABAN 5 MG TAB PO SCH ×2 (08:14→21:27)
[2020-05-30] MEDS: AMIODARONE HCL 200 MG TAB PO SCH ×2 (08:14→21:27)
[2020-05-30] MEDS: THIAMINE 100mg/ml INJ (200mg/2ml VIAL) IV SCH (08:14)
[2020-05-30] MEDS: FOLIC ACID 1 MG TAB PO SCH (08:14)
[2020-05-30] MEDS ORDERED: POTASSIUM CHL 20 Meq TABLET PO ONE (08:15)
[2020-05-30] MEDS: PANTOPRAZOLE 40 MG TAB PO SCH (08:16)
[2020-05-30] MEDS ORDERED: POTASSIUM EFFERVESENT TAB 25 MEQ PO ONE (08:30)
[2020-05-30 09:00] VITALS: BP 129/88
[2020-05-30] MEDS ORDERED: METOPROLOL TARTRATE 25 MG TAB PO ONE (10:45)
[2020-05-30] MEDS ORDERED: ADENOSINE 6 MG/2 ML INJ IV ONE (10:45)
[2020-05-30] MEDS ORDERED: MAGNESIUM OXIDE 400 MG TAB PO ONE (10:45)
[2020-05-30] MEDS ORDERED: METOPROLOL TARTRATE 1MG/1ML-5ML VIAL IV ONE (11:00)
[2020-05-30 13:00] VITALS: BP 105/79
[2020-05-30 17:00] VITALS: BP 126/95
[2020-05-30] MEDS: HYDROcodone-ACET 5/325MG TAB PO PRN (20:01)
[2020-05-30 22:00] VITALS: BP 132/77
[2020-05-31 05:00] VITALS: BP 156/94
[2020-05-31] MEDS: HYDROcodone-ACET 5/325MG TAB PO PRN ×2 (05:06→21:40)
[2020-05-31] MEDS: MEROPENEM 1GM IVPB 100 ML IV SCH (05:06)
[2020-05-31] MEDS: IPRATROPIUM BROM 0.5 MG/2.5ML INH SOL NEB SCH ×5 (06:14→19:45)
[2020-05-31] MEDS: LEVALBUTEROL HCL 1.25 MG/3 ML NEB NEB SCH ×5 (06:14→19:45)
[2020-05-31 06:55] LABS: Basophils # (auto) 0 10 ^3/uL (0-0.2); Basophils % (auto) 0.8 % (0.0-2.0); Eosinophils # (auto) 0.1 10 ^3/uL (0-0.8); Hematocrit 28.3 % (41.0-53.0); Hemoglobin 9.8 g/dL (13.5-17.5); Lymphocytes # (auto) 1.4 10 ^3/uL (0.4-5.4); Lymphocytes % (auto) 24.8 % (10.0-50.0); Mean Corpuscular Hemoglobin 33.9 pg (28.0-32.0); Mean Corpuscular Hgb Conc. 34.5 g/dL (32.0-36.0); Mean Corpuscular Volume 98.4 fL (80.0-100.0); Monocytes # (auto) 0.8 10 ^3/uL (0-1.3); Monocytes % (auto) 13.9 % (0.0-12.0); Neutrophils # (auto) 3.2 10 ^3/uL (1.6-8.6); Neutrophils % (auto) 58.5 % (37.0-80.0); Platelet Count (auto) 395 10^3/uL (140-450); Red Blood Cells 2.88 10^6/uL (4.5-5.90); Red Cell Distribution Width 13.3 % (11.8-14.3); White Blood Cell 5.5 10^3/uL (4.4-10.8)
[2020-05-31] MEDS ORDERED: ADENOSINE 65 MG in GIVE UN-DILUTED 0 ML IV STA (08:32)
[2020-05-31 09:00] VITALS: BP 130/74
[2020-05-31 10:35] VITALS: BP 152/99
[2020-05-31] MEDS: AMIODARONE HCL 200 MG TAB PO SCH ×2 (12:38→23:02)
[2020-05-31] MEDS: APIXABAN 5 MG TAB PO SCH ×2 (12:38→23:02)
[2020-05-31] MEDS: FOLIC ACID 1 MG TAB PO SCH (12:38)
[2020-05-31] MEDS: PANTOPRAZOLE 40 MG TAB PO SCH (12:39)
[2020-05-31] MEDS: METOPROLOL TARTRATE 25 MG TAB PO SCH ×2 (12:39→23:03)
[2020-05-31] MEDS: MAGNESIUM OXIDE 400 MG TAB PO SCH ×2 (12:39→23:03)
[2020-05-31 14:06] VITALS: BP 145/103
[2020-05-31 16:40] VITALS: BP 165/108
[2020-05-31] MEDS: LABETALOL HCL 5 MG/ML 4ML SYRINGE IV PRN (18:31)
[2020-05-31 22:00] VITALS: BP 148/94
[2020-06-01] MEDS: IPRATROPIUM BROM 0.5 MG/2.5ML INH SOL NEB SCH ×2 (00:23→06:37)
[2020-06-01] MEDS: LEVALBUTEROL HCL 1.25 MG/3 ML NEB NEB SCH ×2 (00:23→06:37)
[2020-06-01] MEDS: HYDROcodone-ACET 5/325MG TAB PO PRN (04:49)
[2020-06-01 05:00] VITALS: BP 118/88
[2020-06-01 05:59] LABS: Basophils # (auto) 0.1 10 ^3/uL (0-0.2); Eosinophils # (auto) 0.1 10 ^3/uL (0-0.8); Eosinophils % (auto) 2.2 % (0.0-7.0); Hematocrit 32.9 % (41.0-53.0); Hemoglobin 11.2 g/dL (13.5-17.5); Lymphocytes # (auto) 1.8 10 ^3/uL (0.4-5.4); Lymphocytes % (auto) 29.8 % (10.0-50.0); Mean Corpuscular Hemoglobin 33.4 pg (28.0-32.0); Mean Corpuscular Hgb Conc. 33.9 g/dL (32.0-36.0); Mean Corpuscular Volume 98.4 fL (80.0-100.0); Monocytes # (auto) 0.9 10 ^3/uL (0-1.3); Monocytes % (auto) 15.1 % (0.0-12.0); Neutrophils # (auto) 3.2 10 ^3/uL (1.6-8.6); Neutrophils % (auto) 51.9 % (37.0-80.0); Nucleated Red Blood Cells % 0.1 %; Platelet Count (auto) 323 10^3/uL (140-450); Red Blood Cells 3.34 10^6/uL (4.5-5.90); Red Cell Distribution Width 13.6 % (11.8-14.3); White Blood Cell 6.1 10^3/uL (4.4-10.8)
[2020-06-01 08:57] VITALS: BP 114/78
[2020-06-01] MEDS ORDERED: cefTRIAXone 1GM/50ML D5W 50 ML IV SCH (09:00)
[2020-06-01] MEDS: FOLIC ACID 1 MG TAB PO SCH (09:31)
[2020-06-01] MEDS: PANTOPRAZOLE 40 MG TAB PO SCH (09:31)
[2020-06-01] MEDS: THIAMINE HCL 100 MG TAB PO SCH (09:31)
[2020-06-01] MEDS: APIXABAN 5 MG TAB PO SCH ×2 (09:31→21:34)
[2020-06-01] MEDS: MAGNESIUM OXIDE 400 MG TAB PO SCH ×2 (09:32→21:33)
[2020-06-01] MEDS: METOPROLOL TARTRATE 25 MG TAB PO SCH ×2 (09:32→21:34)
[2020-06-01] MEDS: AMIODARONE HCL 200 MG TAB PO SCH (09:32)
[2020-06-01] MEDS ORDERED: DIGOXIN (250MCG/ML) 2 ML AMPULE IV ONE (10:00)
[2020-06-01 10:20] VITALS: BP 114/78
[2020-06-01] MEDS ORDERED: ZOLPIDEM TARTRATE 5 MG TAB PO PRN (11:45)
[2020-06-01 12:37] VITALS: BP 111/78
[2020-06-01] MEDS: DIGOXIN (250MCG/ML) 2 ML AMPULE IV SCH ×2 (16:06→21:34)
[2020-06-01 17:19] VITALS: BP 140/99
[2020-06-01 21:43] VITALS: BP 136/88
[2020-06-02] MEDS: DIGOXIN (250MCG/ML) 2 ML AMPULE IV SCH (03:31)
[2020-06-02 05:30] VITALS: BP 159/99
[2020-06-02 08:00] VITALS: BP 133/99
[2020-06-02 09:00] VITALS: BP 133/99
[2020-06-02] MEDS: METOPROLOL TARTRATE 25 MG TAB PO SCH ×2 (10:00→21:43)
[2020-06-02] MEDS: FOLIC ACID 1 MG TAB PO SCH (10:01)
[2020-06-02] MEDS: THIAMINE HCL 100 MG TAB PO SCH (10:01)
[2020-06-02] MEDS: DIGOXIN 0.125 MG TAB PO SCH (10:02)
[2020-06-02] MEDS: MAGNESIUM OXIDE 400 MG TAB PO SCH ×2 (10:02→21:43)
[2020-06-02] MEDS: APIXABAN 5 MG TAB PO SCH ×2 (10:02→21:42)
[2020-06-02] MEDS: HYDROcodone-ACET 5/325MG TAB PO PRN ×2 (10:03→21:44)
[2020-06-02] MEDS: PANTOPRAZOLE 40 MG TAB PO SCH (10:03)
[2020-06-02 10:46] LABS: Basophils # (auto) 0.1 10 ^3/uL (0-0.2); Eosinophils # (auto) 0.1 10 ^3/uL (0-0.8); Eosinophils % (auto) 1.7 % (0.0-7.0); Hematocrit 33.5 % (41.0-53.0); Hemoglobin 11.2 g/dL (13.5-17.5); Lymphocytes # (auto) 1.6 10 ^3/uL (0.4-5.4); Lymphocytes % (auto) 27.8 % (10.0-50.0); Mean Corpuscular Hemoglobin 32.9 pg (28.0-32.0); Mean Corpuscular Hgb Conc. 33.3 g/dL (32.0-36.0); Mean Corpuscular Volume 98.8 fL (80.0-100.0); Monocytes # (auto) 0.8 10 ^3/uL (0-1.3); Monocytes % (auto) 14.9 % (0.0-12.0); Neutrophils # (auto) 3.1 10 ^3/uL (1.6-8.6); Neutrophils % (auto) 54.6 % (37.0-80.0); Nucleated Red Blood Cells % 0.3 %; Platelet Count (auto) 364 10^3/uL (140-450); Red Blood Cells 3.39 10^6/uL (4.5-5.90); Red Cell Distribution Width 13.6 % (11.8-14.3); White Blood Cell 5.7 10^3/uL (4.4-10.8)
[2020-06-02 13:00] VITALS: BP 148/102
[2020-06-02 16:44] VITALS: BP 163/87
[2020-06-02] MEDS ORDERED: IOHEXOL 300 MG/ML 100ML BOTTLE IJ ONE (17:38)
[2020-06-02] MEDS: Pro-Stat SF 30ml Vanilla PO SCH (18:00)
[2020-06-02] MEDS: Ensure Enlive Strawberry 8oz Bottle PO SCH (18:00)
[2020-06-02 21:33] VITALS: BP 122/104
[2020-06-03 04:33] VITALS: BP 143/87
[2020-06-03] MEDS: HYDROcodone-ACET 5/325MG TAB PO PRN (05:19)
[2020-06-03 08:00] VITALS: BP 139/100
[2020-06-03 09:00] VITALS: BP 139/100
[2020-06-03] MEDS: APIXABAN 5 MG TAB PO SCH ×2 (10:25→21:49)
[2020-06-03] MEDS: PANTOPRAZOLE 40 MG TAB PO SCH (10:25)
[2020-06-03] MEDS: METOPROLOL TARTRATE 25 MG TAB PO SCH ×2 (10:26→21:49)
[2020-06-03] MEDS: DIGOXIN 0.125 MG TAB PO SCH (10:27)
[2020-06-03 11:37] LABS: Free T3 2.9 pg/mL (2.3-4.2); Free T4 (Free Thyroxine) 1.66 ng/dL (0.89-1.76)
[2020-06-03 13:00] VITALS: BP 104/72
[2020-06-03] MEDS ORDERED: ACETAMINOPHEN 325 MG TAB PO PRN (14:15)
[2020-06-03] MEDS: Ensure Enlive Strawberry 8oz Bottle PO SCH ×2 (14:26→18:10)
[2020-06-03] MEDS: Pro-Stat SF 30ml Vanilla PO SCH ×2 (14:26→18:00)
[2020-06-03] MEDS: MULTIPLE VITAMINS W/ MINERALS TAB PO SCH (14:26)
[2020-06-03 17:00] VITALS: BP 130/78
[2020-06-03] MEDS: IBUPROFEN 400 MG TAB PO PRN (21:50)
[2020-06-03 23:11] VITALS: BP 138/75
[2020-06-04 05:00] VITALS: BP 140/95
[2020-06-04] MEDS: IBUPROFEN 400 MG TAB PO PRN (05:09)
[2020-06-04 08:58] VITALS: BP 104/72
[2020-06-04] MEDS ORDERED: DIGO1TAB48 PO (09:16)
[2020-06-04] MEDS ORDERED: APIX5TAB PO (09:16)
[2020-06-04] MEDS ORDERED: MET50T PO (09:16)
[2020-06-04] MEDS: Pro-Stat SF 30ml Vanilla PO SCH (09:44)
[2020-06-04] MEDS: Ensure Enlive Strawberry 8oz Bottle PO SCH (09:44)
[2020-06-04] MEDS: APIXABAN 5 MG TAB PO SCH (09:44)
[2020-06-04] MEDS: MULTIPLE VITAMINS W/ MINERALS TAB PO SCH (09:45)
[2020-06-04] MEDS: DIGOXIN 0.125 MG TAB PO SCH (09:45)
[2020-06-04] MEDS: PANTOPRAZOLE 40 MG TAB PO SCH (09:45)
[2020-06-04] MEDS: METOPROLOL TARTRATE 25 MG TAB PO SCH (09:45)
[2020-06-04] MEDS ORDERED: IBUP400T23 PO (09:51)
[2020-06-04] MEDS ORDERED: MAGNESIUM OXIDE 400 MG TAB PO SCH (10:00)
[2020-06-04 12:44] VITALS: BP 127/85
[2020-06-04 15:13] VITALS: BP 127/85
[2020-06-04 16:39] VITALS: BP 115/83
== END 2020-06-04 17:40 | disposition home health service (06) | DRG 130 ==
LOC: ER 14:14 → TELE 22:52 → ICU WEST 23:43 → DOU IN ICU 05-26 15:18 → TELE-CENTR 05-29 12:22
PROVIDERS: ADMIT Nurse Practitioner Family; ATTEND Internal Medicine
PROC: 5A1955Z Respiratory Ventilation, Greater than 96 Consecutive Hours (ICD-10-PCS; principal; 2020-05-08)
PROC: B543ZZA Ultrasonography of Right Jugular Veins, Guidance (ICD-10-PCS; 2020-05-08)
PROC: 0BH17EZ Insertion of Endotracheal Airway into Trachea, Via Natural or Artificial Opening (ICD-10-PCS; 2020-05-08)
PROC: 05HM33Z Insertion of Infusion Device into Right Internal Jugular Vein, Percutaneous Approach (ICD-10-PCS; 2020-05-08)
PROC: 0B9J8ZZ Drainage of Left Lower Lung Lobe, Via Natural or Artificial Opening Endoscopic (ICD-10-PCS; 2020-05-11)
DX: J96.01 Acute respiratory failure with hypoxia (principal); I26.93 Single subsegmental thrombotic pulmonary embolism without acute cor pulmonale; G92 Toxic encephalopathy; J15.0 Pneumonia due to Klebsiella pneumoniae; F10.231 Alcohol dependence with withdrawal delirium; J90 Pleural effusion, not elsewhere classified; I42.0 Dilated cardiomyopathy; S22.42XA Multiple fractures of ribs, left side, initial encounter for closed fracture; E87.6 Hypokalemia; E44.1 Mild protein-calorie malnutrition; J98.11 Atelectasis; F12.90 Cannabis use, unspecified, uncomplicated; F10.229 Alcohol dependence with intoxication, unspecified; K52.9 Noninfective gastroenteritis and colitis, unspecified; I10 Essential (primary) hypertension; M48.02 Spinal stenosis, cervical region; Z20.822 Contact with and (suspected) exposure to COVID-19; Z82.49 Family history of ischemic heart disease and other diseases of the circulatory system; Z91.81 History of falling; W18.39XA Other fall on same level, initial encounter; Y93.89 Activity, other specified; Y92.89 Other specified places as the place of occurrence of the external cause; Y99.8 Other external cause status; Z68.24 Body mass index [BMI] 24.0-24.9, adult; T50.901A Poisoning by unspecified drugs, medicaments and biological substances, accidental (unintentional), initial encounter
CPT/HCPCS: 31500; 36415; 36569; 36600; 51702; 70450; 71045; 71275; 72125; 74018; 74176; 78452; 80048; 80053; 80202; 80307; 80320; 80329; 81001; 82040; 82140; 82607; 82805; 82962; 83036; 83605; 83735; 84100; 84132; 84439; 84443; 84478; 84481; 84484; 85007; 85025; 85027; 85379; 85610; 85730; 87040; 87070; 87077; 87081; 87086; 87186; 87205; 87426; 87493; 92507; 92610; 93005; 93017; 93306; 93970; 94002; 94003; 94640; 94668; 95819; 96361; 96365; 96375; 97110; 97116; 97163; 97530; 99291; A4618; C9113; G0378; J0153; J0171; J0696; J1885; J1956; J2185; J2250; J2543; J2704; J3480; J3490; J7060; J7131